=== PATIENT | female | born 1955 | race Caucasian/White ===

== ENCOUNTER → 2018-03-29 15:28 | Outpatient (CLI) | payer MEDICARE, BC, SELFPAY ==
[2018-03-29 17:07] LABS: Anion Gap 12 (5-15); BUN 16 mg/dL (7-18); BUN/Creat Ratio 20.3 RATIO (10-20); Calcium,Total 9.6 mg/dL (8.5-10.1); Chloride 103 mmol/L (98-107); Creatinine, Serum 0.79 mg/dL (0.55-1.02); EST Glomerular Filtration Rate 78 mL/min (>60); Est Glom Filt Rate - Afr Amer 94 mL/min (>60); Glucose 96 mg/dL (74-106); Potassium 4.2 mmol/L (3.5-5.1); Sodium Level 141 mmol/L (136-145)
== END ==
PROVIDERS: Family Provider Family Medicine; PCP Family Medicine; Visit Provider Internal Medicine Cardiovascular Disease
DX: R00.2 Palpitations (principal)
CPT/HCPCS: 36415; 80048

== ENCOUNTER → 2018-03-30 13:19 | Outpatient (CLI) | payer MEDICARE, BC, SELFPAY ==
--- NOTE | 2018-03-30 13:21 | ECHOD_ITS ---
Reason For Study: Arrhythmia Procedure This was a 2D Doppler, Color Flow transthoracic echocardiogram. Technically difficult due to patient body habitus. Exam performed in department. Left Ventricle Normal LV size. Mild concentric left ventricular hypertrophy. Left ventricular systolic function is normal. The estimated ejection fraction is 55 %. Transmitral diastolic flow velocities suggest moderate (stage 2) diastolic dysfunction (pseudonormal pattern). No regional wall motion abnormalities noted. Right Ventricle Normal RV size. Normal systolic function. Atria The left atrium is moderately enlarged. Normal right atrium. Mitral Valve Normal mitral valve. Mild (1+) eccentric mitral valve insufficiency. Tricuspid Valve Normal tricuspid valve. Mild to moderate (1-2+) tricuspid valve insufficiency. Pulmonary artery systolic pressure is 35 mmHg. Aortic Valve Normal aortic valve. Pulmonic Valve Normal pulmonic valve. Great Vessels Normal aortic root. The pulmonary artery is normal size. Normal inferior vena cava. Pericardium/Pleural No pericardial effusion. MMode/2D Measurements & Calculations LVIDd: 5.0 cm IVSd: 1.2 cm Ao root diam: 3.1 cm LVIDs: 3.4 cm LVPWd: 1.2 cm LA dimension: 3.6 cm FS: 32.4 % LAV(MOD-bp): 71.7 ml LA A4 area: 25.7 cm2 RA A4 area: 20.1 cm2 LAV(MOD-bp) Indexed: 34.2 ml/m2 LAV(MOD-sp2): 57.6 ml LAV(MOD-sp4): 87.8 ml Time Measurements MV dec time: 0.29 sec Doppler Measurements & Calculations MV E max alejandro: 99.3 cm/sec Lat Peak E' Alejandro: 9.3 cm/sec Med Peak E' Alejandro: 6.8 cm/sec MV A max alejandro: 75.8 cm/sec E/E' lat: 10.7 E/E' med: 14.7 MV E/A: 1.3 MV V2 max: 131.8 cm/sec MV P1/2t max alejandro: 131.8 cm/sec Ao V2 max: 145.6 cm/sec MV max P.0 mmHg MV P1/2t: 101.7 msec Ao max P.5 mmHg MV V2 mean: 66.2 cm/sec MV dec slope: 379.7 cm/sec2 Ao V2 mean: 90.2 cm/sec MV mean P.1 mmHg MVA(P1/2t): 2.2 cm2 Ao mean P.9 mmHg MV V2 VTI: 42.3 cm Ao V2 VTI: 33.2 cm LV V1 max: 86.7 cm/sec PA V2 max: 98.4 cm/sec TR max alejandro: 280.2 cm/sec LV V1 max P.0 mmHg TR max P.4 mmHg LV V1 mean P.7 mmHg LV V1 mean: 62.9 cm/sec LV V1 VTI: 22.1 cm Interpretation Summary Normal LV size. Mild concentric left ventricular hypertrophy. Left ventricular systolic function is normal. The estimated ejection fraction is 55 %. The left atrium is moderately enlarged. Mild to moderate (1-2+) tricuspid valve insufficiency. Pulmonary artery systolic pressure is 35 mmHg. Transmitral diastolic flow velocities suggest moderate (stage 2) diastolic dysfunction (pseudonormal pattern). Compared to prior study, there is no significant change. Ordering Physician: Kilo Tavares Referring Physician: Kilo Tavares Performed By: Bright Alfonso RCS
== END ==
PROVIDERS: Family Provider Family Medicine; PCP Family Medicine; Visit Provider Internal Medicine Cardiovascular Disease
DX: R00.2 Palpitations (principal)
CPT/HCPCS: 93306

== ENCOUNTER 2018-07-13 10:30 | Emergency (ER) | payer MEDICARE, BC, SELFPAY ==
[2018-07-13 10:34] VITALS: BP 165/72; PULSE 78; RESP 23; TEMP 37; O2SAT 98; BMI 43.4
[2018-07-13 10:41] VITALS: PULSE 62; RESP 12; O2SAT 99
[2018-07-13 11:49] VITALS: O2SAT 98
--- NOTE | 2018-07-13 11:49 | EKG12_ITS ---
Test Reason : AFIB Blood Pressure : / mmHG Vent. Rate : 064 BPM Atrial Rate : 064 BPM P-R Int : 148 ms QRS Dur : 092 ms QT Int : 394 ms P-R-T Axes : 052 029 028 degrees QTc Int : 406 ms Normal sinus rhythm Normal ECG Confirmed by FIORDALIZA RAO, ARSALAN ([id number]), editor continuity and script MICHI NOLASCO ([id number]) on 07/15/2018 3:22:19 PM Referred By: RINA Confirmed By:ARSALAN MANCERA MD
--- NOTE | 2018-07-13 11:49 | RAD_ITS ---
STUDY: X-RAY CHEST REASON FOR EXAM: Female, 63 years old. Chest pain. TECHNIQUE: PA and lateral views of the chest. COMPARISON: Comparison is made with prior study dated April 18, 2017. FINDINGS: EKG electrodes are seen. Mild degree of increased interstitial markings are seen suggestive of mild degree of CHF. Vascular congestion. Calcified granulomatous disease. There is no demonstrated pleural abnormality. Sternal cerclage wires and vascular clips are present from a prior sternotomy and coronary artery bypass graft procedure (CABG). Calcified left hilar lymph nodes. Normal visualized pulmonary arteries. There is atherosclerotic calcification of the aortic arch with tortuosity. There are diffuse degenerative changes of the visualized thoracic spine. Normal visualized ribs, clavicles, and shoulders. There is no demonstrated abnormality of the visualized soft tissue structures of the upper abdomen. RAD/Chest PA and Lateral IMPRESSION: Findings suggestive of a mild degree of mesenteric congestion and CHF. Electronically Signed: Timmy Swanson MD at 12:42 EST Tel [phone], Service support ,
[2018-07-13] MEDS: Aspirin 81 MG TAB.CHEW 162 MG PO (12:21)
[2018-07-13 12:22] VITALS: BP 124/68; PULSE 66; RESP 16; O2SAT 97
[2018-07-13 12:45] LABS: Absolute Lymphocyte Count 1.52 X10^3/ul (0.83-4.51); Absolute Neutrophil Count 7.2 X10^3/uL (2.0-7.7); Basophil# 0.05 X10^3/uL; Basophil% 0.5 % (0-1); Hematocrit 41.6 % (37-47); Hemoglobin 13.9 g/dl (12.0-15.0); Lymphocyte # 1.52 X10^3/ul (4.0); Lymphocyte % 15.8 % (19-41); Mean Corp Hgb Conc 33.4 g/gl (32-36); Mean Corpuscular Hgb 28.9 pg (27.0-32.0); Mean Corpuscular Volume 86.5 fL (81-99); Mean Platelet Vol. 11.9 fl (6.2-12.0); Monocyte# 0.73 X10^3/uL; Monocyte% 7.6 % (0-10); Neutrophil # 7.17 X10^3/uL (2.7-7.7); Neutrophil % 74.4 % (47-70); Platelet Count 190 K/mm3 (150-450); RBC Distribution Width CV 14.2 % (11.6-14.6); RBC Distribution Width SD 44.4 fl (35.1-43.9); Red Blood Count 4.81 M/mm3 (4.2-5.4); White Blood Count 9.6 K/mm3 (4.4-11.0)
[2018-07-13 12:51] LABS: POSITIVE COUNT NO; POSITIVE DIFFERENTIAL NO; POSITIVE MORPHOLOGY NO
[2018-07-13 12:59] LABS: Prothrombin Time (Protime)PT. 13.2 SECONDS (11.7-14.9)
[2018-07-13 13:03] LABS: Anion Gap 10 (5-15); BUN 13 mg/dL (7-18); BUN/Creat Ratio 19.4 RATIO (10-20); Calcium,Total 8.9 mg/dL (8.5-10.1); Chloride 104 mmol/L (98-107); Creatinine, Serum 0.67 mg/dL (0.55-1.02); EST Glomerular Filtration Rate 94 mL/min (>60); Est Glom Filt Rate - Afr Amer 114 mL/min (>60); Estimated Creatinine Clearance 66.21 ml/min; Glucose 126 mg/dL (74-106); Magnesium 1.8 mg/dL (1.6-2.6); Potassium 3.5 mmol/L (3.5-5.1); Sodium Level 142 mmol/L (136-145); Thyroid Stim Hormone (TSH) 2.64 uIU/mL (0.358-3.74)
--- NOTE | 2018-07-13 13:38 | ED.DCSUM_ITS ---
- ER Visit Summary Date of Service: 07/13/18 Chief Complaint: Palpitations History of Present Illness: The patient is a 63 F with history of paroxysmal A. fib and episodic palpitations who presents for prolonged palpitations this morning. Patient was going about her morning routine when she began having pa lpitations. She had associated shortness of breath, felt like her heart was racing, and nausea. Her heart rate was approximately 147 on home measurement. She took 2 baby aspirin. She denies fever, chest pain, cough, abdominal pain, vomiting today. She did feel nauseated last night and states she did not sleep well because she felt anxious during the night. She is not on any anticoagulation. Patient has a history of A. fib, coronary artery disease, CABG, not on any blood thinners. Physical Examination: Vital signs: afebrile, hemodynamically stable, no hypoxia on room air General: well nourished, well developed, in no distress Skin: warm, dry, no rash, no pallor HEENT: normocephalic and atraumatic; PERRL, EOMI, moist mucous membranes Cardiovascular: regular rate and rhythm without murmurs, no peripheral edema, 2+ pulses all distal extremities Respiratory: No increased work of breathing, lungs are clear to auscultation bilaterally, no rales, rhonchi or wheezing Abdominal: Abdomen is soft, nontender with normoactive bowel sounds, no guarding or rebound, no masses MSK: Moves all extremities, no deformities, normal strength Neuro: Awake and alert, oriented ?4. No facial droop, sensation and motor function intact and symmetric Test Results: Abnormal Lab Results 07/13/18 07/13/18 07/13/18 12:16 12:16 12:16 WBC 9.6 RBC 4.81 Hgb 13.9 Hct 41.6 MCV 86.5 MCH 28.9 MCHC 33.4 RDW 14.2 RDW Differential 44.4 H Plt Count 190 MPV 11.9 Immature Gran % (Auto) 0.700 Neut % (Auto) 74.4 H Lymph % (Auto) 15.8 L [place] % (Auto) 7.6 Eos % (Auto) 1.0 Baso % (Auto) 0.5 Absolute Neuts (auto) 7.2 Absolute Lymphs (auto) 1.52 Total Counted Not Reportable PT 13.2 INR 1.0 APTT 26.0 Sodium 142 Potassium 3.5 Chloride 104 Carbon Dioxide 28.0 Anion Gap 10 BUN 13 Creatinine 0.67 Estim Creat Clear Calc 66.21 Est GFR (MDRD) Af Amer 114 Est GFR (MDRD) Non-Af 94 BUN/Creatinine Ratio 19.4 Glucose 126 H Calcium 8.9 Magnesium 1.8 Troponin I 0.039 TSH 2.64 Clinical Impression(s) from Imaging Studies Chest X-Ray 07/13/18 11:49 IMPRESSION: Findings suggestive of a mild degree of mesenteric congestion and CHF. Electronically Signed: Timmy Swanson MD at 12:42 EST Tel [phone], Service support , Medications Given Discontinued Medications Aspirin (Aspirin, Baby) 162 mg PO X1 ONE Stop: 07/13/18 11:50 Last Admin: 07/13/18 12:21 Dose: 162 mg Emergency Department Course and Treatment: Patient was given an additional 2 baby aspirin. EKG shows sinus rhythm rate of 64, no ischemic changes. No changes from old EKG. Labs showed no anemia, leukocytosis, electrolyte derangements, or renal dysfunction. Troponin within normal limits at 0.039. Thyroid function checked and within normal limits. On reevaluation, patient was still asymptomatic and having no discomfort. She had no further episodes of palpitations. No arrhythmias were noted on telemetry during her stay. She was discussed with Dr. Reilly who recommended patient be ordered a 30-day event monitor and her metoprolol be increased to 75 mg twice daily. Patient was ordered the 30-day event monitor and discharged to the outpatient cardiovascular center for placement of the monitor. She is to follow-up with Dr. Tavares for the results. Patient was given a prescription for the new dose of metoprolol, and we discussed how she can use her current prescription to take the new dose as well. Patient was discharged home and will return if any worsening of her condition. Treatment Plan: [] Disposition: [] Impression: [] This note was generated with Tric[employer] software. It may contain incorrect words, spelling, and punctuation that were not noted in review of the chart prior to signing ED Disposition - Plan for ED Patient: Disposition: Home or Assisted Living Chief Complaint: Chest Pain Instructions: ED Palpitations Prescriptions: RX: Metoprolol Tartrate 75 mg PO BID #60 tab Referrals: Kilo Tavares MD [STAFF PHYSICIAN] - 1 Week Anibal Arellano MD [Primary Care Provider] - Additional Instructions: Please go directly to the outpatient cardiovascular department on the first floor upon leaving the emergency department. He will be given a 30-day event monitor to wear to watch for any further palpitations. Follow the instructions as you were given by the cardiovascular nurse. Increase your metoprolol to 75 mg twice daily. Follow-up with your television production assistant for review of the event monitor as you are instructed by the cardiovascular nurse. If you have any worsening of your condition or any new concerning symptoms, please return immediately to the emergency department for another evaluation.
--- NOTE | 2018-07-13 13:44 | ED.DEP ---
ED Disposition - Plan for ED Patient: Disposition: Home or Assisted Living Chief Complaint: Chest Pain Instructions: ED Palpitations Prescriptions: Metoprolol Tartrate 75 mg PO BID #60 tab Referrals: Anibal Arellano MD [Primary Care Provider] - Kilo Tavares MD [STAFF PHYSICIAN] - 1 Week Additional Instructions: Please go directly to the outpatient cardiovascular department on the first floor upon leaving the emergency department. He will be given a 30-day event monitor to wear to watch for any further palpitations. Follow the instructions as you were given by the cardiovascular nurse. Increase your metoprolol to 75 mg twice daily. Follow-up with your second cutter for review of the event monitor as you are instructed by the cardiovascular nurse. If you have any worsening of your condition or any new concerning symptoms, please return immediately to the emergency department for another evaluation.
--- NOTE | 2018-07-13 13:49 | DCINST.ED_ITS ---
ED Disposition - Plan for ED Patient: Disposition: Home or Assisted Living Chief Complaint: Chest Pain Instructions: ED Palpitations Prescriptions: Metoprolol Tartrate 75 mg PO BID #60 tab Referrals: Anibal Arellano MD [Primary Care Provider] - Kilo Tavares MD [STAFF PHYSICIAN] - 1 Week Additional Instructions: Please go directly to the outpatient cardiovascular department on the first f brad upon leaving the emergency department. He will be given a 30-day event monitor to wear to watch for any further palpitations. Follow the instructions as you were given by the cardiovascular nurse. Increase your metoprolol to 75 mg twice daily. Follow-up with your endband cutter hand for review of the event monitor as you are instructed by the cardiovascular nurse. If you have any worsening of your condition or any new concerning symptoms, please return immediately to the emergency department for another evaluation.
[2018-07-13 13:57] VITALS: BP 120/59; PULSE 59; RESP 20
== END 2018-07-13 14:32 | disposition home or self-care (01) ==
PROVIDERS: Emergency Provider Emergency Medicine; Family Provider Family Medicine; PCP Family Medicine
DX: R00.2 Palpitations (principal); I48.0 Paroxysmal atrial fibrillation; I25.10 Atherosclerotic heart disease of native coronary artery without angina pectoris; Z79.82 Long term (current) use of aspirin; Z79.899 Other long term (current) drug therapy; Z95.1 Presence of aortocoronary bypass graft
CPT/HCPCS: 71046; 80048; 83735; 84443; 84484; 85025; 85610; 85730; 93005; 99285; A4216

== ENCOUNTER → 2018-12-07 19:55 | Outpatient (CLI) | payer MEDICARE, BC, SELFPAY ==
[2018-11-04 14:27] VITALS: BMI 41.3
== END ==
PROVIDERS: Family Provider Family Medicine; PCP Family Medicine; Referring Provider Nurse Practitioner Family; Visit Provider Nurse Practitioner Family
DX: G47.10 Hypersomnia, unspecified (principal); I48.0 Paroxysmal atrial fibrillation
CPT/HCPCS: 95810

== ENCOUNTER → 2019-02-08 20:59 | Outpatient (CLI) | payer MEDICARE, BC, SELFPAY ==
[2019-01-05 14:05] VITALS: BMI 41.3
== END ==
PROVIDERS: Family Provider Family Medicine; PCP Family Medicine; Referring Provider Nurse Practitioner Acute Care; Visit Provider Nurse Practitioner Acute Care
DX: G47.33 Obstructive sleep apnea (adult) (pediatric) (principal)
CPT/HCPCS: 95811

== ENCOUNTER → 2020-09-16 06:15 | Outpatient (CLI) | payer MEDICARE, BC, SELFPAY ==
[2020-09-04 08:43] VITALS: BMI 42.7
--- NOTE | 2020-09-16 08:58 | STRESSREP ---
Stress Test Report Pharmacologic myocardial perfusion stress test. 65-year-old lady with a history of coronary artery bypass surgery in 2014 with a ALVES to the LAD saphenous vein graft to obtuse marginal branch 1 and 2. Stress protocol: Resting EKG demonstrates normal sinus rhythm with a rate of 83 bpm normal intervals are noted resting blood pressure is 128/78 mmHg. 0.4 mg of regadenoson was infused per usual protocol followed by rapid intravenous saline flush injection continuous EKG monitoring was performed the patient maintained sinus rhythm throughout the recording. The maximum heart rate was 105 bpm which was 68% of maximum predicted heart rate the maximum workload was 1 metabolic equivalent. At rest there were no ST or T wave changes noted to suggest abnormal flow reserve at peak infusion nonspecific ST-T wave changes were noted with no meet the criteria for ischemia. No clinical angina was noted the test was terminated due to completion of the protocol. The final blood pressure was 112/58 mmHg. Myocardial perfusion protocol. 14.7 mCi of technetium 99m sestamibi was injected at rest. 0.4 mg of regadenoson was infused per usual protocol. At peak infusion 45.0 mCi of technetium 99m sestamibi was injected stress images were obtained stress and rest images were reconstructed and compared in the short axis vertical long horizontal long axis. Gated images were also obtained Perfusion SPECT analysis: Review of the stress images demonstrate normal uptake of tracer noted in all areas of the myocardium the resting images similarly demonstrate normal uptake of tracer noted in all areas of the myocardium. No areas of reversibility are noted to suggest ischemia no previous infarct is noted. Gated SPECT analysis: The gated ejection fraction is 48%. Conclusion: Normal pharmacologic myocardial perfusion stress test. Preserved ejection fraction.
== END ==
PROVIDERS: PCP Family Medicine; Referring Provider Internal Medicine Cardiovascular Disease; Visit Provider Internal Medicine Cardiovascular Disease
DX: I25.10 Atherosclerotic heart disease of native coronary artery without angina pectoris (principal); Z95.1 Presence of aortocoronary bypass graft
CPT/HCPCS: 78452; 93017; A9500; A4216; J2785

== ENCOUNTER 2021-02-24 11:01 | Emergency (ER) | payer MEDICARE, BC, SELFPAY ==
[2020-09-04 08:43] VITALS: BMI 42.7
[2021-02-24 11:01] VITALS: BP 147/116; PULSE 61; RESP 16; TEMP 36.8; O2SAT 96; BMI 43.5
--- NOTE | 2021-02-24 11:32 | EKG12_ITS ---
Test Reason : SOB Blood Pressure : / mmHG Vent. Rate : 055 BPM Atrial Rate : 055 BPM P-R Int : 146 ms QRS Dur : 086 ms QT Int : 456 ms P-R-T Axes : 061 025 026 degrees QTc Int : 436 ms Sinus bradycardia Otherwise normal ECG Confirmed by BREE RAO, NICHOLE ([id number]), film editor supervisor GARRY GREENE ([id number]) on 02/27/2021 7:49:05 AM Referred By: RODRIGO Confirmed By:NICHOLE GIRON MD
--- NOTE | 2021-02-24 11:54 | EDS_ITS ---
HPI History of Present Illness Chief Complaint: Shortness of Breath Narrative Narrative: 65-year-old female presenting with dyspnea especially with exertion. Patient states that she is able to walk shorter distance than usual. She is able to go outside and walk around. She is not having any chest pain. She not had a fever or chills. She states she has not had the COVID-19 vaccine. She states she has history of CABG, paroxysmal A. fib, hypertension, sleep apnea. Patient states that she did not take her Lasix last week because she was getting home at 7:00 at night and she did not want to have to get up all night. Patient states she missed about 6 days. Patient complains of lower extremity edema and feeling of bloating in her abdomen. [facility] Medical History Anxiety and depression Atherosclerosis of coronary artery of [place] heart without angina pectoris Dyslipidemia Essential (primary) hypertension GERD (gastroesophageal reflux disease) Hypersomnolence disorder Hypothyroidism Left ventricular diastolic dysfunction Non-rheumatic tricuspid valve insufficiency Nonrheumatic mitral valve insufficiency Obesity (BMI 30-39.9) ROSENDO (obstructive sleep apnea) Paroxysmal atrial fibrillation Restless leg syndrome, uncontrolled Tibial plateau fracture, right Trimalleolar fracture of right ankle Home Medications alprazolam 0.25 mg PO BID PRN PRN 07/19/15 [History Last Taken 09/19/15] levothyroxine 125 mcg PO DAILY 07/19/15 [History Last Taken 02/12/16] pantoprazole 40 mg PO DAILY 07/19/15 [History Last Taken 02/12/16] simvastatin 20 mg PO QHS 07/19/15 [History Last Taken 02/11/16] losartan-hydrochlorothiazide 1 tab PO DAILY 02/13/16 [History Last Taken Unknown] multivitamin with folic acid 1 tab PO DAILY 02/13/16 [History Last Taken 02/12/16] alendronate 70 mg tablet 70 mg PO QWEEK 01/05/19 [History Last Taken Unknown] apixaban 5 mg tablet 5 mg PO BID #60 tab 08/22/19 [Rx Last Taken Unknown] aspirin 81 mg tablet,delayed release 81 mg PO QDAY #90 tab 12/06/19 [Rx Last Taken Unknown] escitalopram oxalate 20 mg tablet 20 mg PO DAILY tab 09/04/20 [History Last Taken Unknown] furosemide 40 mg tablet 40 mg PO DAILY tab 09/04/20 [History Last Taken Unknown] latanoprost 0.005 % eye drops 1 drp OPHTHALMIC DAILY 09/04/20 [History Last Taken Unknown] metoprolol tartrate 100 mg tablet 50 mg PO BID #60 tab 09/04/20 [Rx Last Taken Unknown] spironolactone 50 mg tablet 50 mg PO DAILY #90 tab 09/04/20 [Rx Last Taken Unknown] Allergy/AdvReac Type Severity Reaction Status Date / Time latex Allergy Rash Verified 02/24/21 11:03 Sulfa (Sulfonamide Allergy Rash Verified 02/24/21 11:03 Antibiotics) atorvastatin calcium AdvReac Other Verified 02/24/21 11:03 [From Lipitor] CILLINS Allergy Rash Uncoded 02/24/21 11:03 Family History Father CAD (coronary artery disease) Hypertension Mother CAD (coronary artery disease) Hypertension Breast cancer Brother CAD (coronary artery disease) Hypertension TIA (transient ischemic attack) Brother Myocardial infarction cabg Surgical History H/O coronary artery bypass surgery (12/04/14) H/O knee surgery H/O: hysterectomy Social History Smoking Status: Never smoker alcohol intake: never caffeine: Yes Type: coffee ROS ROS ED Constitutional Constitutional ED: Denies chills or fever(s) Eyes Eyes: Denies blurry vision or change in vision ENT ENT ED: Denies rhinorrhea or sore throat Cardiovascular Cardiovascular: Denies chest pain or palpitations Respiratory/Chest Respiratory/Chest: Reports dyspnea and dyspnea on exertion; Denies cough Gastrointestinal Gastrointestinal: Reports other Details: Sensation of bloating ; Denies abdominal pain or nausea Genitourinary Genitourinary ED: Denies dysuria or hematuria Musculoskeletal Musculoskeletal: Denies arthralgias or myalgias Integumentary Denies abscess or rash Neurologic Neurologic: Denies headache(s), paresthesias or weakness Psychiatric Psychiatric: Denies anxiety or depression EXAM Physical Exam Const Vital Signs: 02/24/21 11:01 02/24/21 11:59 02/24/21 13:55 Temperature 98.2 F Temperature Source Temporal Pulse Rate 61 51 L 52 L Respiratory Rate 16 19 H 21 H Blood Pressure 147/116 H 129/72 H Blood Pressure Mean 126 91 Pulse Ox 96 95 96 Oxygen Delivery Method Room Air 02/24/21 14:03 02/24/21 14:54 Temperature Temperature Source Pulse Rate 56 L Respiratory Rate 16 Blood Pressure 143/49 H Blood Pressure Mean 80 Pulse Ox 95 97 Oxygen Delivery Method Room Air Positive obese General Appearance ED: NAD Nutritional Appearance: obese HEENT atraumatic and trauma Eyes PERRL and EOMs intact bilaterally Resp normal respiratory effort and clear to auscultation bilaterally Cardio regular rate and regular rhythm GI non-tender and non-distended Palpation: soft Extremity General Extremety ED: Yes edema; Negative for tenderness General Extremity: edema Neuro oriented x3 Sensorium / Orientation: alert Psych mental status grossly normal Skin Lesions: no lesions Rashes: no rashes MDM MDM MDM Narrative Medical decision making narrative: Patient presenting with dyspnea on exertion. She states that she is able to walk around the yard she does has more dyspnea than usual. She has not been taking her Lasix for 6 days. EKG performed on arrival shows sinus bradycardia 55 bpm without signs of ischemic change as interpreted by myself. Chest x-ray shows no acute cardiopulmonary process as interpreted by myself and the radiologist does agree. Patient's lab work-up is unremarkable. Troponin is negative. BNP is slightly elevated. Given that the patient is not having severe dyspnea and is able to get around the yard I think she is stable to go home. She is counseled to take her Lasix. She will follow- up with Dr. Tavares. Impression: 1. Dyspnea Lab Data Labs: Laboratory Results - last 24 hr 02/24/21 02/24/21 02/24/21 11:15 11:15 14:45 WBC 7.5 RBC 3.98 L Hgb 12.1 Hct 35.5 L MCV 89.2 MCH 30.4 MCHC 34.1 RDW Std Deviation 42.2 RDW Coeff of Ayesha 12.9 Plt Count 173 MPV 12.1 H Immature Gran % (Auto) 1.200 H Neut % (Auto) 61.0 Lymph % (Auto) 24.1 [place] % (Auto) 11.1 H Eos % (Auto) 1.9 Baso % (Auto) 0.7 Absolute Neuts (auto) 4.6 Absolute Lymphs (auto) 1.80 Nucleated RBC % 0 Sodium 138 Potassium 4.1 Chloride 104 Carbon Dioxide 28.0 Anion Gap 6 BUN 13 Creatinine 0.85 Estim Creat Clear Calc 50.80 Est GFR (MDRD) Af Amer 85 Est GFR (MDRD) Non-Af 71 BUN/Creatinine Ratio 15.3 Glucose 146 H Calcium 9.6 Troponin I High Sens B-Natriuretic Peptide 223.3 H 02/24/21 14:45 WBC RBC Hgb Hct MCV MCH MCHC RDW Std Deviation RDW Coeff of Ayesha Plt Count MPV Immature Gran % (Auto) Neut % (Auto) Lymph % (Auto) [place] % (Auto) Eos % (Auto) Baso % (Auto) Absolute Neuts (auto) Absolute Lymphs (auto) Nucleated RBC % Sodium Potassium Chloride Carbon Dioxide Anion Gap BUN Creatinine Estim Creat Clear Calc Est GFR (MDRD) Af Amer Est GFR (MDRD) Non-Af BUN/Creatinine Ratio Glucose Calcium Troponin I High Sens 7.9 B-Natriuretic Peptide Radiography Diagnostic Testing: Radiology Impression Chest X-Ray 02/24/21 12:06 IMPRESSION: Chronic interstitial changes, no superimposed acute pulmonary process Electronically Signed: Adalid Cruz MD at 12:23 EDT , Service support , Discharge Plan Triage Chief Complaint: Shortness of Breath ED Provider: Rock Noriega Dx/Rx/DC Orders Instructions: ED Heart Failure, Congestive (CHF) Prescriptions: No Action alendronate 70 mg tablet 70 mg PO QWEEK RF: 0 escitalopram oxalate 20 mg tablet 20 mg PO DAILY RF: 0 latanoprost 0.005 % drops 1 drp OPHTHALMIC DAILY RF: 0 metoprolol tartrate 100 mg tablet 50 mg PO BID Qty: 60 RF: 11 furosemide 40 mg tablet 40 mg PO DAILY RF: 0 spironolactone [Aldactone] 50 mg tablet 50 mg PO DAILY Qty: 90 RF: 3 alprazolam 1 MG tablet 0.25 mg PO BID PRN PRN (Reason: Anxiety) RF: 0 pantoprazole 40 MG tablet 40 mg PO DAILY RF: 0 simvastatin 20 MG tablet 20 mg PO QHS RF: 0 levothyroxine 125 MCG tablet 125 mcg PO DAILY RF: 0 multivitamin with folic acid 1 TABLET tablet 1 tab PO DAILY RF: 0 losartan-hydrochlorothiazide 1 TAB tablet 1 tab PO DAILY RF: 0 Eliquis 5 mg tablet 5 mg PO BID Qty: 60 RF: 11 aspirin [Adult Low Dose Aspirin] 81 mg tablet,delayed release (DR/EC) 81 mg PO QDAY Qty: 90 RF: 3 Primary Care Provider: Anibal Arellano Referrals: Kilo Tavares MD [STAFF PHYSICIAN] - As soon as possible Anibal Arellano MD [Primary Care Provider] - Disposition Disposition: Home, Self Care
[2021-02-24 11:59] VITALS: BP 129/72; PULSE 51; RESP 19; O2SAT 95
[2021-02-24 12:03] LABS: Anion Gap 6 (5-15); BUN 13 mg/dL (7-18); BUN/Creat Ratio 15.3 RATIO (10-20); Calcium,Total 9.6 mg/dL (8.5-10.1); Chloride 104 mmol/L (98-107); Creatinine, Serum 0.85 mg/dL (0.55-1.02); EST Glomerular Filtration Rate 71 mL/min (>60); Est Glom Filt Rate - Afr Amer 85 mL/min (>60); Glucose 146 mg/dL (74-106); Potassium 4.1 mmol/L (3.5-5.1); Sodium Level 138 mmol/L (136-145)
--- NOTE | 2021-02-24 12:06 | RAD_ITS ---
STUDY: X-RAY CHEST REASON FOR EXAM: Female, 65 years old. Acute substernal chest pain TECHNIQUE: Single AP portable view of the chest. COMPARISON: 07/13/2018 FINDINGS: EKG leads overlie the chest There are interstitial changes of the lungs. There is no demonstrated pleural abnormality. Sternal cerclage wires and vascular clips are present from a prior sternotomy and coronary artery bypass graft procedure (CABG). Normal mediastinum and bertram. Normal visualized pulmonary arteries. There is atherosclerotic calcification of the aortic arch with tortuosity. There are diffuse degenerative changes of the visualized thoracic spine. Normal visualized ribs, clavicles, and shoulders. There is no demonstrated abnormality of the visualized soft tissue structures of the upper abdomen. RAD/Chest 1 View (Portable) IMPRESSION: Chronic interstitial changes, no superimposed acute pulmonary process Electronically Signed: Adalid Cruz MD at 12:23 EDT , Service support ,
[2021-02-24 12:15] LABS: BNP,B-Type NATRIURETIC PEPTIDE 223.3 pg/mL (0-100)
--- NOTE | 2021-02-24 12:31 | ED.RN ---
pt refused covid swab stating my symptoms are purely related to my heart condition. rn informed dr melo at this time.
[2021-02-24 13:55] VITALS: PULSE 52; RESP 21; O2SAT 96
[2021-02-24 14:03] VITALS: BP 143/49; PULSE 56; RESP 16; O2SAT 95
[2021-02-24 14:51] LABS: Absolute Neutrophil Count 4.6 X10^3/uL (2.0-7.7); Basophil# 0.05 X10^3/uL; Basophil% 0.7 % (0-1); Eosinophil# 0.14 X10^3/uL; Eosinophils% 1.9 % (0-5); Hematocrit 35.5 % (37-47); Hemoglobin 12.1 g/dL (12.0-15.0); Lymphocyte % 24.1 % (19-41); Mean Corp Hgb Conc 34.1 g/dL (32-36); Mean Corpuscular Hgb 30.4 pg (27.0-32.0); Mean Corpuscular Volume 89.2 fL (81-99); Mean Platelet Vol. 12.1 fl (6.2-12.0); Monocyte# 0.83 X10^3/uL; Monocyte% 11.1 % (0-10); NRBC Flagged by Analyzer 0 % (0-5); Neutrophil # 4.57 X10^3/uL (2.7-7.7); Platelet Count 173 K/mm3 (150-450); RBC Distribution Width CV 12.9 % (11.6-14.6); RBC Distribution Width SD 42.2 fl (35.1-43.9); Red Blood Count 3.98 M/mm3 (4.2-5.4); White Blood Count 7.5 K/mm3 (4.4-11.0)
[2021-02-24 14:54] VITALS: O2SAT 97
[2021-02-24 15:10] LABS: Troponin-I HS 7.9 pg/mL (3.0-53.7)
[2021-02-24 16:06] VITALS: BP 124/57; RESP 16; O2SAT 98
== END 2021-02-24 16:07 | disposition home or self-care (01) ==
PROVIDERS: Emergency Provider Student in an Organized Health Care Education/Training Program; PCP Family Medicine
DX: R06.02 Shortness of breath (principal); I11.9 Hypertensive heart disease without heart failure; I48.0 Paroxysmal atrial fibrillation; I25.10 Atherosclerotic heart disease of native coronary artery without angina pectoris; E03.9 Hypothyroidism, unspecified; E78.5 Hyperlipidemia, unspecified; G47.33 Obstructive sleep apnea (adult) (pediatric); K21.9 Gastro-esophageal reflux disease without esophagitis; F32.9 Major depressive disorder, single episode, unspecified; F41.9 Anxiety disorder, unspecified; E66.9 Obesity, unspecified; Z79.01 Long term (current) use of anticoagulants; Z79.82 Long term (current) use of aspirin; Z79.899 Other long term (current) drug therapy; Z95.1 Presence of aortocoronary bypass graft
CPT/HCPCS: 71045; 80048; 83880; 84484; 85025; 93005; 99284; A4216

== ENCOUNTER 2021-07-31 14:55 | Emergency (ER) | payer MEDICARE, BC, SELFPAY ==
[2021-07-31 14:55] VITALS: BP 145/65; PULSE 62; RESP 16; TEMP 36.2; O2SAT 98; BMI 39.6
--- NOTE | 2021-07-31 15:15 | RAD_ITS ---
STUDY: X-RAY - RIGHT KNEE REASON FOR EXAM: Female, 66 years old. FALL TECHNIQUE: 3 view(s) of the knee. COMPARISON: 02/12/2016 FINDINGS: Status post reduction and internal fixation of old tibial fracture with indwelling orthopedic hardware... Old lateral tibial plateau fracture Normal proximal tibiofibular articulation. Narrowed medial femorotibial compartment. Narrowed lateral femorotibial compartment. Normal patellofemoral articulation. Surgical clips are seen within the soft tissues of the medial calf. RAD/Knee 3 Views IMPRESSION: Old healed fracture of the proximal tibia with postsurgical changes. No acute fracture or subluxation Electronically Signed: William Falcon MD at 16:51 EST , Service support ,
--- NOTE | 2021-07-31 15:15 | RAD_ITS ---
STUDY: X-RAY - RIGHT FEMUR REASON FOR STUDY: Female, 66 years old. FALL TECHNIQUE: 4 view(s) of the femur. COMPARISON: None. FINDINGS: Normal visualized femur. Normal visualized soft tissue structure. RAD/Femur Min 2 Views IMPRESSION: Normal x-ray examination of the femur. Electronically Signed: William Falcon MD at 16:51 EST , Service support ,
--- NOTE | 2021-07-31 15:15 | RAD_ITS ---
STUDY: X-RAY - LUMBAR SPINE REASON FOR EXAM: Female, 66 years old. FALL TECHNIQUE: 3 view(s) of the lumbar spine were obtained. COMPARISON: None FINDINGS: Normal lumbar lordosis. There is no substantial scoliosis. There is a normal alignment of the vertebrae. No acute fractures or subluxation. Disc space heights well-maintained is minor multilevel endplate spurring. Vascular calcification of the aorta noted without evidence for aneurysm. RAD/Lumbar Spine 2 or 3 Views IMPRESSION: Mild spondylosis. No acute fracture or other significant bony pathology Electronically Signed: William Falcon MD at 16:52 EST , Service support ,
--- NOTE | 2021-07-31 17:37 | EDS_ITS ---
HPI HPI - Fall History of Present Illness Chief Complaint: Fall Informant: patient Occured/Mechanism Occurred: Yesterday Mechanism/Context: Yes same level fall and Yes trip Usually ambulates: Without assistance Pain/Injury Location: Right knee, thigh, and hip Quality of Pain: Sharp, Aching, Burning and Throbbing Associated Symptoms Associated Symptoms: Negative for Parasthesias, Weakness, Loss of function, Inability to ambulate and Loss of consciousness Narrative Narrative: Patient presents with pain in her right knee, thigh, and hip that began after a fall yesterday. Patient states she was walking up a ramp when her right knee gave out. Patient states she fell. Patient states her pain is sharp, aching, burning, and throbbing. Patient states it is worse with any ambulation or weightbearing. Patient states it is better with rest. Patient denies any paresthesias or weakness. Patient denies any head injury or loss of consciousness. [facility] Medical History (Updated 07/31/21 @ 17:[address] Dean Lou, DO) Anxiety and depression Atherosclerosis of coronary artery of [place] without angina pectoris Dyslipidemia Essential (primary) hypertension GERD (gastroesophageal reflux disease) Hypersomnolence disorder Hypothyroidism Left ventricular diastolic dysfunction Non-rheumatic tricuspid valve insufficiency Nonrheumatic mitral valve insufficiency Obesity (BMI 30-39.9) ROSENDO (obstructive sleep apnea) Paroxysmal atrial fibrillation Restless leg syndrome, uncontrolled Tibial plateau fracture, right Trimalleolar fracture of right ankle Home Medications levothyroxine 125 mcg PO DAILY 07/19/15 [History Last Taken 02/12/16] pantoprazole 40 mg PO DAILY 07/19/15 [History Last Taken 02/12/16] simvastatin 20 mg PO QHS 07/19/15 [History Last Taken 02/11/16] losartan-hydrochlorothiazide 1 tab PO DAILY 02/13/16 [History Last Taken Unknown] multivitamin with folic acid 1 tab PO DAILY 02/13/16 [History Last Taken 02/12/16] alendronate 70 mg tablet 70 mg PO QWEEK 01/05/19 [History Last Taken Unknown] apixaban 5 mg tablet 5 mg PO BID #60 tab 08/22/19 [Rx Last Taken Unknown] aspirin 81 mg tablet,delayed release 81 mg PO QDAY #90 tab 12/06/19 [Rx Last Taken Unknown] escitalopram oxalate 20 mg tablet 20 mg PO DAILY tab 09/04/20 [History Last Taken Unknown] furosemide 40 mg tablet 20 mg PO DAILY tab 09/04/20 [History Last Taken Unknown] latanoprost 0.005 % eye drops 1 drp OPHTHALMIC DAILY 09/04/20 [History Last Taken Unknown] metoprolol tartrate 100 mg tablet 50 mg PO BID #60 tab 09/04/20 [Rx Last Taken Unknown] spironolactone 50 mg tablet 50 mg PO DAILY #90 tab 03/05/21 [Rx Last Taken Un known] tramadol 50 mg PO Q4H PRN PRN 3 Days #20 tab 07/31/21 [Rx Last Taken Unknown] Allergy/AdvReac Type Severity Reaction Status Date / Time latex Allergy Rash Verified 03/05/21 13:54 Sulfa (Sulfonamide Allergy Rash Verified 03/05/21 13:54 Antibiotics) atorvastatin calcium AdvReac Other Verified 03/05/21 13:54 [From Lipitor] Opioids - Morphine Analogues AdvReac Other Verified 07/31/21 14:59 CILLINS Allergy Rash Uncoded 02/24/21 11:03 Family History Father CAD (coronary artery disease) Hypertension Mother CAD (coronary artery disease) Hypertension Breast cancer Brother CAD (coronary artery disease) Hypertension TIA (transient ischemic attack) Brother Myocardial infarction cabg Surgical History H/O coronary artery bypass surgery (12/04/14) H/O knee surgery H/O: hysterectomy Social History Smoking Status: Never smoker alcohol intake: never caffeine: Yes Type: coffee ROS ROS ED Constitutional Constitutional ED: Denies chills or fever(s) Eyes Eyes: Denies blurry vision or change in vision ENT ENT ED: Denies rhinorrhea or sore throat Cardiovascular Cardiovascular: Denies chest pain or palpitations Respiratory/Chest Respiratory/Chest: Denies cough or dyspnea Gastrointestinal Gastrointestinal: Reports nausea; Denies vomiting Genitourinary Genitourinary ED: Denies dysuria or hematuria Musculoskeletal Musculoskeletal: Reports back pain; Denies neck pain Integumentary Denies abscess or rash Neurologic Neurologic: Denies headache(s) or weakness Allergic/Immunologic Allergic/Immunologic ED: Denies mouth swelling or urticaria EXAM Physical Exam Const Vital Signs: 07/31/21 14:55 Temperature 97.2 F L Temperature Source Temporal Pulse Rate 62 Respiratory Rate 16 Blood Pressure 145/65 H Blood Pressure Mean 91 Pulse Ox 98 Oxygen Delivery Method Room Air Positive well nourished, well developed and obese General Appearance ED: well developed Nutritional Appearance: obese HEENT Reports normocephalic Neck full ROM and supple Extremity Extremity Narrative: There is tenderness over the anterior aspect of the right knee and medial aspect of the right thigh. There is also tenderness over the posterior and lateral aspects of the right hip. There is no bony crepitance or step-off. There is no obvious deformity. Range of motion was limited in all motions of the right lower extremity secondary to pain. Extensor mechanism is intact. Pedal pulses are equal bilaterally. Sensation was intact to light touch in all digits. Capillary refill was less than 2 seconds in all digits. Neuro oriented x3, CN's II-XII intact bilaterally, moves all extremities, no focal motor deficits and no sensory deficits noted Sensorium / Orientation: alert Motor Exam: strength 5/5 throughout Psych mental status grossly normal MDM MDM MDM Narrative Medical decision making narrative: X-rays of the lumbar spine were obtained. There are 3 views. On my interpretation, there is no acute fracture or spondylolisthesis. Radiologist also interpreted the x-rays and agrees. X-rays of the right knee were obtained. There are 3 views. On my interpretation, there is no acute fracture. There is a well-healed fracture of the proximal tibia. There is no soft tissue swelling. Radiologist also interpreted the x- rays and agrees. X-rays of the right femur were obtained. There are 4 views. On my interpretation, there is no acute fracture or dislocation. There is no soft tissue swelling. Radiologist also interpreted the x-rays and agrees. Patient was advised of her findings. Patient was given a knee immobilizer. Patient was instructed to ice and elevate the right knee. Patient was instructed to follow-up with her primary care physician in 5 to 7 days. Patient understood and was agreeable with the plan. All questions were answered. Radiography Diagnostic Testing: Clinical Impression(s) from Imaging Studies Femur X-Ray 07/31/21 15:15 IMPRESSION: Normal x-ray examination of the femur. Electronically Signed: William Falcon MD at 16:51 EST , Service support , Knee X-Ray 07/31/21 15:15 IMPRESSION: Old healed fracture of the proximal tibia with postsurgical changes. No acute fracture or subluxation Electronically Signed: William Falcon MD at 16:51 EST , Service support , Lumbar Spine X-Ray 07/31/21 15:15 IMPRESSION: Mild spondylosis. No acute fracture or other significant bony pathology Electronically Signed: William Falcon MD at 16:52 EST , Service support , Discharge Plan Triage Chief Complaint: Fall ED Provider: Dean Lou Dx/Rx/DC Orders Clinical Impression: Right knee sprain, Strain of right hip and thigh Instructions: ED Knee Sprain, ED Muscle Strain, Extremity Prescriptions: New tramadol 50 MG tablet 50 mg PO Q4H PRN PRN (Reason: Pain) 3 Days Qty: 20 RF: 0 No Action alendronate 70 mg tablet 70 mg PO QWEEK RF: 0 escitalopram oxalate 20 mg tablet 20 mg PO DAILY RF: 0 latanoprost 0.005 % drops 1 drp OPHTHALMIC DAILY RF: 0 metoprolol tartrate 100 mg tablet 50 mg PO BID Qty: 60 RF: 11 furosemide 40 mg tablet 20 mg PO DAILY RF: 0 spironolactone [Aldactone] 50 mg tablet 50 mg PO DAILY Qty: 90 RF: 3 pantoprazole 40 MG tablet 40 mg PO DAILY RF: 0 simvastatin 20 MG tablet 20 mg PO QHS RF: 0 levothyroxine 125 MCG tablet 125 mcg PO DAILY RF: 0 multivitamin with folic acid 1 TABLET tablet 1 tab PO DAILY RF: 0 losartan-hydrochlorothiazide 1 TAB tablet 1 tab PO DAILY RF: 0 Eliquis 5 mg tablet 5 mg PO BID Qty: 60 RF: 11 aspirin [Adult Low Dose Aspirin] 81 mg tablet,delayed release (DR/EC) 81 mg PO QDAY Qty: 90 RF: 3 Primary Care Provider: Aniabl Arellano Referrals: Anibal Arellano MD [Primary Care Provider] - 3-5 Days Disposition Disposition: Home, Self Care
== END 2021-07-31 18:22 | disposition home or self-care (01) ==
PROVIDERS: Emergency Provider Emergency Medicine; PCP Family Medicine
DX: S83.91XA Sprain of unspecified site of right knee, initial encounter (principal); S76.011A Strain of muscle, fascia and tendon of right hip, initial encounter; S76.911A Strain of unspecified muscles, fascia and tendons at thigh level, right thigh, initial encounter; W18.30XA Fall on same level, unspecified, initial encounter; Y93.01 Activity, walking, marching and hiking; Y92.9 Unspecified place or not applicable; Y99.9 Unspecified external cause status; I11.9 Hypertensive heart disease without heart failure; I48.0 Paroxysmal atrial fibrillation; I25.10 Atherosclerotic heart disease of native coronary artery without angina pectoris; E78.5 Hyperlipidemia, unspecified; E03.9 Hypothyroidism, unspecified; K21.9 Gastro-esophageal reflux disease without esophagitis; G47.33 Obstructive sleep apnea (adult) (pediatric); F32.A Depression, unspecified; F41.9 Anxiety disorder, unspecified; E66.9 Obesity, unspecified; Z79.01 Long term (current) use of anticoagulants; Z79.82 Long term (current) use of aspirin; Z79.899 Other long term (current) drug therapy; Z95.1 Presence of aortocoronary bypass graft
CPT/HCPCS: 72100; 73552; 73562; 99282

== ENCOUNTER → 2022-03-09 | Outpatient (CLI) | payer MEDICARE, BC, SELFPAY ==
[2022-03-09 15:29] LABS: Absolute Lymphocyte Count 1.54 X10^3/uL (0.83-4.51); Absolute Neutrophil Count 13.5 X10^3/uL (2.0-7.7); Basophil# 0.07 X10^3/uL; Basophil% 0.4 % (0-1); Eosinophil# 0.02 X10^3/uL; Eosinophils% 0.1 % (0-5); Hematocrit 40.9 % (37-47); Hemoglobin 13.6 g/dL (12.0-15.0); Lymphocyte # 1.54 X10^3/ul (0.83-4.51); Lymphocyte % 9.2 % (19-41); Mean Corp Hgb Conc 33.3 g/dL (32-36); Mean Corpuscular Hgb 30.4 pg (27.0-32.0); Mean Corpuscular Volume 91.3 fL (81-99); Mean Platelet Vol. 12.4 fl (6.2-12.0); Monocyte# 1.26 X10^3/uL; Monocyte% 7.5 % (0-10); NRBC Flagged by Analyzer 0 % (0-5); Neutrophil # 13.47 X10^3/uL (2.7-7.7); Neutrophil % 80.4 % (47-70); Platelet Count 203 K/mm3 (150-450); RBC Distribution Width CV 13.8 % (11.6-14.6); RBC Distribution Width SD 45.7 fl (35.1-43.9); Red Blood Count 4.48 M/mm3 (4.2-5.4); White Blood Count 16.8 K/mm3 (4.4-11.0)
[2022-03-09 16:00] LABS: Anion Gap 7 (5-15); BUN 19 mg/dL (7-18); BUN/Creat Ratio 27.2 RATIO (10-20); Calcium,Total 9.4 mg/dL (8.5-10.1); Chloride 104 mmol/L (98-107); EST Glomerular Filtration Rate 89 mL/min (>60); Est Glom Filt Rate - Afr Amer 107 mL/min (>60); Glucose 133 mg/dL (74-106); Potassium 4.2 mmol/L (3.5-5.1); Sodium Level 139 mmol/L (136-145)
== END | disposition home or self-care (01) ==
LOC: LAB 14:56
PROVIDERS: PCP Family Medicine; Visit Provider Nurse Practitioner Family
DX: I25.10 Atherosclerotic heart disease of native coronary artery without angina pectoris (principal); I11.0 Hypertensive heart disease with heart failure; I50.32 Chronic diastolic (congestive) heart failure; I48.0 Paroxysmal atrial fibrillation; Z95.1 Presence of aortocoronary bypass graft
CPT/HCPCS: 36415; 80048; 85025

== ENCOUNTER → 2022-03-27 | Outpatient (CLI) | payer MEDICARE, BC, SELFPAY ==
--- NOTE | 2022-03-27 06:43 | ECHOCS_ITS ---
Reason For Study: CAD/ASHD Procedure This was a 2D Doppler, Color Flow transthoracic echocardiogram. The study was technically difficult. Contrast injection was performed. Exam performed in department. Left Ventricle Normal LV size. Left ventricular systolic function is normal. The estimated ejection fraction is 60 %. No regional wall motion abnormalities noted. Right Ventricle Normal RV size. Normal systolic function. Atria Normal left atrium. Normal right atrium. Mitral Valve Normal mitral valve. Mild-Moderate (1-2+) eccentric mitral valve insufficiency. Tricuspid Valve Normal tricuspid valve. Mild tricuspid valve insufficiency. Pulmonary artery systolic pressure is 33 mmHg. Aortic Valve Trisinus/trileaflet aortic valve. Mild focal aortic valve calcification. Pulmonic Valve The pulmonic valve is not well visualized. Great Vessels Normal aortic root. The pulmonary artery is normal size. Inferior vena cava collapse with respiration. Pericardium/Pleural No pericardial effusion. Medication 20 gauge I.V. with prn adaptor inserted into left arm. Diluted definity 2ml given slow IV push to enhance endocardial definition. MMode/2D Measurements & Calculations LVIDd: 5.4 cm IVSd: 1.0 cm LA dimension: 5.0 cm LVIDs: 3.4 cm LVPWd: 1.1 cm RVDd: 3.0 cm FS: 35.9 % LAV(MOD-bp): 69.3 ml LA A4 area: 22.8 cm2 RA A4 area: 17.3 cm2 LAV(MOD-bp) Indexed: 33.8 ml/m2 LAV(MOD-sp2): 65.6 ml LAV(MOD-sp4): 69.3 ml Time Measurements MV dec time: 0.34 sec Doppler Measurements & Calculations MV E max julio: 93.7 cm/sec MV V2 max: 144.9 cm/sec MV P1/2t max julio: 144.9 cm/sec MV A max julio: 61.8 cm/sec MV max P.4 mmHg MV P1/2t: 119.2 msec MV E/A: 1.5 MV V2 mean: 62.6 cm/sec MV dec slope: 356.0 cm/sec2 MV mean P.1 mmHg MV V2 VTI: 41.1 cm MVA(P1/2t): 1.8 cm2 Ao V2 max: 180.9 cm/sec LV V1 max: 117.0 cm/sec PA V2 max: 96.1 cm/sec Ao max P.1 mmHg LV V1 max P.5 mmHg Ao V2 mean: 119.5 cm/sec LV V1 mean P.2 mmHg Ao mean P.6 mmHg LV V1 mean: 84.2 cm/sec Ao V2 VTI: 45.2 cm LV V1 VTI: 31.5 cm TR max julio: 281.0 cm/sec TR max P.7 mmHg ECHO/Echo Complete W/ Contrast Interpretation Summary Normal LV size. Left ventricular systolic function is normal. The estimated ejection fraction is 60 %. Normal left atrium. Pulmonary artery systolic pressure is 33 mmHg. Contrast injection was performed. Ordering Physician: Meng Lopez Referring Physician: Furness, Anibal Performed By: Bright Alfonso RCS
--- NOTE | 2022-03-27 10:04 | STRESSREP ---
Stress Test Report Pharmacologic mild area perfusion stress test. 67-year-old lady with a history of chest pain. Stress protocol: Resting EKG demonstrates sinus bradycardia with a rate of 52 bpm normal intervals are noted resting blood pressure is 138/70 mmHg. 0.4 mg of regadenoson was infused per usual protocol followed by Intravenous saline flush injection continuous EKG monitoring was performed. The maximum heart rate attained was 75 bpm which was 49% of max impacted heart rate the maximum workload was 1 metabolic equivalent. At rest there were no ST or T wave changes noted to suggest abnormal flow reserve and a peak infusion nonspecific ST-T wave changes were noted with did not meet criteria for ischemia. No clinical angina was noted. Myocardial perfusion protocol. 14.0 mCi of technetium 99m sestamibi was injected at rest. 0.4 mg of regadenoson was infused per usual protocol. At peak infusion 43.9 mCi of technetium 99m sestamibi was injected stress images were obtained stress and resting images were reconstructed and compared in the short axis vertical long and horizontal long axis. Gated images were also obtained to Perfusion SPECT analysis. Review of the images demonstrate normal uptake of tracer noted in all areas of the myocardium. The resting images similarly demonstrate normal uptake of tracer noted in all areas of the myocardium. No areas of reversibility are noted to suggest ischemia and no previous infarct was noted. Gated SPECT analysis: The gated ejection fraction is noted to be 53%. Conclusion: Normal pharmacologic myocardial perfusion stress test. Preserved ejection fraction.
== END | disposition home or self-care (01) ==
LOC: CVS 06:42
PROVIDERS: PCP Family Medicine; Referring Provider Nurse Practitioner Family; Visit Provider Nurse Practitioner Family
DX: I11.0 Hypertensive heart disease with heart failure (principal); I50.32 Chronic diastolic (congestive) heart failure; I48.0 Paroxysmal atrial fibrillation; I25.10 Atherosclerotic heart disease of native coronary artery without angina pectoris; Z95.1 Presence of aortocoronary bypass graft
CPT/HCPCS: 78452; 93017; 93306; A9500; Q9957; A4216; C8929; J2785

== ENCOUNTER → 2022-04-13 | Outpatient (CLI) | payer MEDICARE, BC, SELFPAY ==
--- NOTE | 2022-04-13 09:44 | CDU_ITS ---
Reason For Study: Dizziness Rt. Velocities/BP Lt. Velocities/BP Prox CCA 55.2/12.1 cm/sec. Prox CCA 88.8/15.1 cm/sec. Mid CCA 60.4/13.4 cm/sec. Mid CCA 75.3/13.9 cm/sec. Dist CCA 68.2/16 cm/sec. Dist CCA 64.2/11.4 cm/sec. Prox ICA 130.2/29.8 cm/sec. Prox ICA 67.9/16.3 cm/sec. Mid ICA 93.7/24.3 cm/sec. Mid ICA 58.6/16.5 cm/sec. Dist ICA 86.4/24.3 cm/sec. Dist ICA 96.1/24.9 cm/sec. Rt. ICA/CCA = 2.16. Lt. ICA/CCA = 1.28. Prox ECA 154.3/11.6 cm/sec. Prox ECA 94.9/10.2 cm/sec. Rt. Vert. 55.3/11.5 cm/sec. Lt. Vert. 50.7/11.4 cm/sec. Right Extracranial There is homogeneous, smooth atherosclerotic plaque noted in the right common carotid artery. There is heterogeneous, irregular atherosclerotic plaque noted in the right internal carotid artery. There is heterogeneous, irregular atherosclerotic plaque noted in the right external carotid artery. Antegrade flow is noted in the right vertebral artery. Left Extracranial There is homogeneous, smooth atherosclerotic plaque noted in the left common carotid artery. There is heterogeneous, irregular atherosclerotic plaque noted in the left internal carotid artery. There is heterogeneous, irregular atherosclerotic plaque noted in the left external carotid artery. Antegrade flow is noted in the left vertebral artery. Procedure Carotid Duplex 16717. This is a Carotid Duplex examination using B-mode, color flow and specral Doppler. Exam performed in department. VL/Carotid Duplex Ultrasound Interpretation Summary Moderate (50-69%) stenosis right extracranial internal carotid. Mild (<50%) stenosis left extracranial internal carotid. Patent and antegrade vertebrals bilaterally. Ordering Physician: Meng Lopez Referring Physician: Anibal Arellano Performed By: Lin Catalan RVT
== END | disposition home or self-care (01) ==
LOC: CVS 09:43
PROVIDERS: PCP Family Medicine; Visit Provider Nurse Practitioner Family
DX: I65.23 Occlusion and stenosis of bilateral carotid arteries (principal); I11.0 Hypertensive heart disease with heart failure; I50.32 Chronic diastolic (congestive) heart failure; I48.0 Paroxysmal atrial fibrillation; I25.10 Atherosclerotic heart disease of native coronary artery without angina pectoris; Z95.1 Presence of aortocoronary bypass graft
CPT/HCPCS: 93880

== ENCOUNTER 2022-07-12 17:13 | Emergency (ER) | payer MEDICARE, BC, SELFPAY ==
[2022-07-12] VITALS (8 sets, daily range): BP systolic 147–231; BP diastolic 50–87; PULSE 46–66; RESP 14–22; TEMP 35.6–36.8; O2SAT 93–97; BMI 42.2
--- NOTE | 2022-07-12 17:32 | ED.VIS.DYS ---
HPI History of Present Illness Chief Complaint: Shortness of Breath Informant: patient Onset/Context/Timing Onset: Weeks (2) Context: gradual Timing: Continuous Quality: Positive for Dyspnea on exertion Worsened by: Exertion Relieved by: Nothing Associated Symptoms cough and rhinorrhea; Negative for post nasal drip, ear pain, fever, sore throat, chills, sweats, clear sputum, white sputum, yellow sputum or green sputum Narrative Narrative: Patient presents with shortness of breath that has been getting worse over the last 2 weeks. Patient states it is gradually getting worse. Patient states it has been constant. Patient states it is worse with any exertion. Patient states nothing seems to help with it. Patient admits to a cough but denies any sputum production. Patient admits to some rhinorrhea. Patient denies any fevers or chills. Patient denies any chest pain. Patient denies any lower extremity swelling. PE Risk Factors: Negative for Cancer, Prior DVT or PE, Recent immobilization, Recent surgery or Recent travel [facility] Medical History Anxiety and depression Atherosclerosis of coronary artery of [place] heart without angina pectoris Chronic diastolic (congestive) heart failure Dyslipidemia Essential (primary) hypertension GERD (gastroesophageal reflux disease) Hypersomnolence disorder Hypothyroidism Left ventricular diastolic dysfunction Non-rheumatic tricuspid valve insufficiency Nonrheumatic mitral valve insufficiency Obesity (BMI 30-39.9) ROSENDO (obstructive sleep apnea) Paroxysmal atrial fibrillation Restless leg syndrome, uncontrolled Tibial plateau fracture, right Trimalleolar fracture of right ankle Home Medications levothyroxine 125 mcg tablet 125 mcg PO DAILY 07/19/15 [History Last Taken 07/12/22] pantoprazole 40 mg tablet,delayed release 40 mg PO DAILY 07/19/15 [History Last Taken 07/12/22] simvastatin 20 mg tablet 20 mg PO QHS 07/19/15 [History Last Taken 07/12/22] apixaban 5 mg tablet (Eliquis) 5 mg PO BID #60 tabs 08/22/19 [Rx Last Taken 07/12/22] aspirin 81 mg tablet,delayed release (Adult Low Dose Aspirin) 81 mg PO QDAY #90 tabs 12/06/19 [Rx Last Taken 07/12/22] escitalopram oxalate 20 mg tablet 20 mg PO DAILY 09/04/20 [History Last Taken 07/12/22] furosemide 40 mg tablet 20 mg PO DAILY 09/04/20 [History Last Taken 07/12/22] latanoprost 0.005 % eye drops 1 drp ophthalmic (eye) DAILY 09/04/20 [History Last Taken 07/12/22] spironolactone 50 mg tablet (Aldactone) 50 mg PO DAILY #90 tabs 03/05/21 [Rx Last Taken 07/12/22] metoprolol tartrate 50 mg tablet 50 mg PO BID #180 tabs 03/09/22 [Rx Last Taken 07/12/22] losartan 100 mg tablet 100 mg PO DAILY #90 tabs 04/13/22 [Rx Last Taken 07/12/22] Allergy/AdvReac Type Severity Reaction Status Date / Time latex Allergy Rash Verified 04/13/22 14:59 Sulfa (Sulfonamide Allergy Rash Verified 04/13/22 14:59 Antibiotics) atorvastatin calcium AdvReac Other Verified 04/13/22 14:59 [From Lipitor] Opioids - Morphine Analogues AdvReac Other Verified 04/13/22 14:59 CILLINS Allergy Rash Uncoded 04/13/22 14:59 Family History Father CAD (coronary artery disease) Hypertension Mother CAD (coronary artery disease) Hypertension Breast cancer Brother CAD (coronary artery disease) Hypertension TIA (transient ischemic attack) Brother Myocardial infarction cabg Surgical History H/O coronary artery bypass surgery (12/04/14) H/O knee surgery H/O: hysterectomy Social History Smoking Status: Never smoker alcohol intake: current alcohol intake frequency: a few times a month substance use type: does not use caffeine: No ROS ROS ED Constitutional Constitutional ED: Denies chills or fever(s) Eyes Eyes: Reports blurry vision; Denies diplopia ENT ENT ED: Reports rhinorrhea; Denies sore throat Cardiovascular Cardiovascular: Denies chest pain or palpitations Respiratory/Chest Respiratory/Chest: Reports cough and dyspnea Gastrointestinal Gastrointestinal: Denies nausea or vomiting Genitourinary Genitourinary ED: Denies dysuria or hematuria Musculoskeletal Musculoskeletal: Denies back pain or neck pain Integumentary Denies abscess or rash Neurologic Neurologic: Denies headache(s) or weakness Allergic/Immunologic Allergic/Immunologic ED: Denies mouth swelling or urticaria EXAM Physical Exam Const Vital Signs: 07/12/22 17:15 07/12/22 17:25 07/12/22 18:09 Temperature 96.0 F L Temperature Source Temporal Pulse Rate 66 55 L Respiratory Rate 22 H 18 Respiratory Effort Normal Non-Labored Respiratory Depth Normal Respiratory Pattern Normal Normal Blood Pressure 231/87 H Blood Pressure Mean 135 Pulse Ox 96 Oxygen Delivery Method Room Air Room Air 07/12/22 18:27 07/12/22 19:46 07/12/22 21:00 Temperature 98.2 F Temperature Source Oral Pulse Rate 53 L 52 L 48 L Respiratory Rate 16 16 14 Respiratory Effort Respiratory Depth Respiratory Pattern Blood Pressure 173/70 H 193/67 H 195/58 H Blood Pressure Mean 104 109 103 Pulse Ox 95 93 97 Oxygen Delivery Method Room Air Room Air Room Air 07/12/22 21:17 Temperature Temperature Source Pulse Rate 46 L Respiratory Rate 16 Respiratory Effort Respiratory Depth Respiratory Pattern Blood Pressure 164/64 H Blood Pressure Mean 97 Pulse Ox 95 Oxygen Delivery Method Room Air Positive well nourished, well developed and obese General Appearance ED: well developed and NAD Nutritional Appearance: obese HEENT Reports moist mucous membranes Neck supple and no JVD Resp normal respiratory effort and clear to auscultation bilaterally Cardio regular rate, regular rhythm and no murmurs GI normal to inspection, nondistended, normoactive bowel sounds and non-tender Palpation: soft Extremity normal to inspection General Extremety ED: Negative for edema or tenderness General Extremity: Negative for edema Neuro oriented x3, CN's II-XII intact bilaterally and no sensory deficits noted Sensorium / Orientation: alert Motor Exam: strength 5/5 throughout Psych mental status grossly normal Skin no rashes or lesions noted MDM MDM MDM Narrative Medical decision making narrative: EKG was obtained. On my interpretation, it showed a sinus bradycardia with a rate of 53. VA interval, QRS interval, and QTc intervals were all normal. [place] was normal. There are no acute ST or T wave changes. PA and lateral chest x-ray was obtained. There are 2 views. On my interpretation, lung abraham showed mild pulmonary congestion. There is normal cardiac silhouette. Bony thorax is normal. There is no acute process noted. Radiologist also interpreted the x-ray and agrees. CBC shows a mild leukocytosis of 14.6. D-dimer was normal. Patient comprehensive metabolic profile showed a slightly elevated glucose of 222. High-sensitivity troponin was normal. BNP was elevated at 518.3. Patient was given a DuoNeb aerosol here. Patient was given a dose of Lasix. Patient was instructed to continue her Lasix and spironolactone as scheduled. Patient was concerned about her blood pressure and wanted something to help with her blood pressure. Patient was given a dose of clonidine here. Patient's blood pressure improved to 147/50. Patient feels better on reevaluation. Patient feels comfortable going home. Patient was instructed to follow-up with her primary care physician and nurse case management in 3 to 5 days. Patient was instructed return if worse in any way. Patient understood and was agreeable with the plan. All questions were answered. Lab Data Attestation: I reviewed the patient's lab results. Labs: Laboratory Results - last 24 hr 07/12/22 07/12/22 07/12/22 17:56 17:56 17:56 WBC 14.6 H RBC 4.59 Hgb 13.8 Hct 41.2 MCV 89.8 MCH 30.1 MCHC 33.5 RDW Std Deviation 46.0 H RDW Coeff of Ayesha 14.0 Plt Count 197 MPV 11.8 Immature Gran % (Auto) 1.400 H Neut % (Auto) 83.9 H Lymph % (Auto) 7.6 L Kleberg % (Auto) 6.3 Eos % (Auto) 0.3 Baso % (Auto) 0.5 Absolute Neuts (auto) 12.2 H Absolute Lymphs (auto) 1.11 Nucleated RBC % 0 D-Dimer Quant (PE/DVT) < 0.27 L Sodium 141 Potassium 4.1 Chloride 105 Carbon Dioxide 25.0 Anion Gap 11 BUN 17 Creatinine 0.76 Estim Creat Clear Calc 43.92 Est GFR (MDRD) Af Amer 98 Est GFR (MDRD) Non-Af 81 BUN/Creatinine Ratio 22.5 H Glucose 222 H Calcium 9.7 Total Bilirubin 0.70 AST 30 ALT 49 Alkaline Phosphatase 55 Troponin I High Sens 16 B-Natriuretic Peptide Total Protein 7.1 Albumin 4.0 Globulin 3.1 Albumin/Globulin Ratio 1.3 07/12/22 17:56 WBC RBC Hgb Hct MCV MCH MCHC RDW Std Deviation RDW Coeff of Ayesha Plt Count MPV Immature Gran % (Auto) Neut % (Auto) Lymph % (Auto) Kleberg % (Auto) Eos % (Auto) Baso % (Auto) Absolute Neuts (auto) Absolute Lymphs (auto) Nucleated RBC % D-Dimer Quant (PE/DVT) Sodium Potassium Chloride Carbon Dioxide Anion Gap BUN Creatinine Estim Creat Clear Calc Est GFR (MDRD) Af Amer Est GFR (MDRD) Non-Af BUN/Creatinine Ratio Glucose Calcium Total Bilirubin AST ALT Alkaline Phosphatase Troponin I High Sens B-Natriuretic Peptide 518.3 H Total Protein Albumin Globulin Albumin/Globulin Ratio Radiography Chest X-Ray - ED: 2 View, Read by ED Physician, Read by Radiologist and CHF (Mild) Diagnostic Testing: Clinical Impression(s) from Imaging Studies Chest X-Ray 07/12/22 18:40 IMPRESSION: Mild congestive heart failure. Electronically Signed: Karlo Lundberg MD at 19:03 EST , EKG Initial EKG: Attestation: I personally reviewed and interpreted this EKG as follows: Interpretation: No Acute Injury Pattern and Sinus Bradycardia (53) Prior EKG tracings: available for review Prior: Unchanged (02/24/2021) Discharge Plan Triage Chief Complaint: Shortness of Breath ED Provider: Dean Lou Dx/Rx/DC Orders Clinical Impression: Dyspnea, Chronic diastolic (congestive) heart failure Instructions: ED Heart Failure, Congestive (CHF), ED Dyspnea Prescriptions: No Action escitalopram oxalate 20 mg tablet 20 mg PO DAILY latanoprost 0.005 % drops 1 drp OPHTHALMIC DAILY furosemide 40 mg tablet 20 mg PO DAILY Label Comments: water pill spironolactone [Aldactone] 50 mg tablet 50 mg PO DAILY Qty: 90 3RF metoprolol tartrate 50 mg tablet 50 mg PO BID Qty: 180 3RF losartan 100 mg tablet 100 mg PO DAILY Qty: 90 3RF pantoprazole 40 MG tablet 40 mg PO DAILY Label Comments: ACID REFLUX simvastatin 20 MG tablet 20 mg PO QHS Label Comments: CHOLESTEROL levothyroxine 125 MCG tablet 125 mcg PO DAILY Label Comments: THYROID Eliquis 5 mg tablet 5 mg PO BID Qty: 60 11RF aspirin [Adult Low Dose Aspirin] 81 mg tablet,delayed release (DR/EC) 81 mg PO QDAY Qty: 90 3RF Primary Care Provider: Anibal Arellano Referrals: Anibal Arellano MD [Primary Care Provider] - 3-5 Days Disposition Disposition: Home, Self Care
--- NOTE | 2022-07-12 17:38 | EKG12_ITS ---
Test Reason : SOB Blood Pressure : / mmHG Vent. Rate : 053 BPM Atrial Rate : 053 BPM P-R Int : 132 ms QRS Dur : 082 ms QT Int : 480 ms P-R-T Axes : 052 034 032 degrees QTc Int : 450 ms Sinus bradycardia Cannot rule out Inferior infarct , age undetermined Abnormal ECG Confirmed by FIORDALIZA RAO, ARSALAN ([id number]), assignment editor GARRY GREENE ([id number]) on 07/14/2022 11:23:26 AM Referred By: MONA Confirmed By:ARSALAN MANCERA MD
[2022-07-12 18:05] LABS: Absolute Lymphocyte Count 1.11 X10^3/uL (0.83-4.51); Absolute Neutrophil Count 12.2 X10^3/uL (2.0-7.7); Basophil# 0.07 X10^3/uL; Basophil% 0.5 % (0-1); Eosinophil# 0.04 X10^3/uL; Eosinophils% 0.3 % (0-5); Hematocrit 41.2 % (37-47); Hemoglobin 13.8 g/dL (12.0-15.0); Lymphocyte # 1.11 X10^3/ul (0.83-4.51); Lymphocyte % 7.6 % (19-41); Mean Corp Hgb Conc 33.5 g/dL (32-36); Mean Corpuscular Hgb 30.1 pg (27.0-32.0); Mean Corpuscular Volume 89.8 fL (81-99); Mean Platelet Vol. 11.8 fl (6.2-12.0); Monocyte# 0.92 X10^3/uL; Monocyte% 6.3 % (0-10); NRBC Flagged by Analyzer 0 % (0-5); Neutrophil # 12.21 X10^3/uL (2.7-7.7); Neutrophil % 83.9 % (47-70); Platelet Count 197 K/mm3 (150-450); Red Blood Count 4.59 M/mm3 (4.2-5.4); White Blood Count 14.6 K/mm3 (4.4-11.0)
[2022-07-12] MEDS: Ipratropium/Albuterol Sulfate 3 ML AMPUL.NEB INHALATION (18:07)
[2022-07-12 18:18] LABS: D-Dimer Quantitative (DVT/PE) < 0.27 FEU/ug/m (0.27-0.49)
[2022-07-12 18:19] LABS: ALB/GLOB Ratio 1.3 RATIO (0.9-2.4); AST(SGOT) 30 U/L (15-37); Alanine Aminotransfer ALT/SGPT 49 U/L (13-56); Alkaline Phosphatase 55 U/L (45-117); Anion Gap 11 (5-15); BUN 17 mg/dL (7-18); BUN/Creat Ratio 22.5 RATIO (10-20); Calcium,Total 9.7 mg/dL (8.5-10.1); Chloride 105 mmol/L (98-107); Creatinine, Serum 0.76 mg/dL (0.55-1.02); EST Glomerular Filtration Rate 81 mL/min (>60); Est Glom Filt Rate - Afr Amer 98 mL/min (>60); Estimated Creatinine Clearance 43.92 ml/min; Globulin 3.1 g/dL (2.2-4.2); Glucose 222 mg/dL (74-106); Potassium 4.1 mmol/L (3.5-5.1); Protein, Total 7.1 g/dL (6.4-8.2); Sodium Level 141 mmol/L (136-145); Troponin-I HS 16 pg/mL (3.0-54.0)
[2022-07-12 18:29] LABS: BNP,B-Type NATRIURETIC PEPTIDE 518.3 pg/mL (0-100)
--- NOTE | 2022-07-12 18:40 | RAD_ITS ---
STUDY: X-RAY CHEST REASON FOR EXAM: Female, 67 years old. Dyspnea TECHNIQUE: PA and lateral views of the chest. COMPARISON: 02/24/2021 FINDINGS: Status post median sternotomy. The lungs are clear and expanded. Slightly elevated right hemidiaphragm which is unchanged. There is moderate cardiac enlargement. Normal mediastinum and bertram. There is prominence of the pulmonary hilar arteries and peripheral pulmonary arteries, consistent with congestive heart failure (CHF). Normal visualized aortic arch and descending thoracic aorta. Normal visualized thoracic spine. Normal visualized ribs, clavicles, and shoulders. There is no demonstrated abnormality of the visualized soft tissue structures of the upper abdomen. RAD/Chest PA and Lateral IMPRESSION: Mild congestive heart failure. Electronically Signed: Karlo Lundberg MD at 19:03 EST ,
[2022-07-12] MEDS: Furosemide 40 MG/4 ML Vial IV (19:41)
[2022-07-12] MEDS: cloNIDine HCl 0.1 MG Tablet PO (20:28)
== END 2022-07-12 21:44 | disposition home or self-care (01) ==
PROVIDERS: Emergency Provider Emergency Medicine; PCP Family Medicine; Visit Provider Emergency Medicine
DX: R06.00 Dyspnea, unspecified (principal); I11.0 Hypertensive heart disease with heart failure; I50.32 Chronic diastolic (congestive) heart failure; I48.0 Paroxysmal atrial fibrillation; E78.5 Hyperlipidemia, unspecified; R73.9 Hyperglycemia, unspecified; I25.10 Atherosclerotic heart disease of native coronary artery without angina pectoris; Z79.82 Long term (current) use of aspirin; Z79.01 Long term (current) use of anticoagulants; Z79.899 Other long term (current) drug therapy
CPT/HCPCS: 71046; 80053; 83880; 84484; 85025; 85379; 87428; 93005; 94640; 96374; 99285; A4216; J1940

== ENCOUNTER 2022-07-13 22:26 | Emergency (ER) | payer MEDICARE, BC, SELFPAY ==
[2022-07-13 22:29] VITALS: BP 212/98; PULSE 65; RESP 14; TEMP 36.2; O2SAT 98; BMI 40.5
[2022-07-13 22:51] VITALS: RESP 17
--- NOTE | 2022-07-13 23:12 | EX.ED.DYSGE1 ---
HPI History of Present Illness Chief Complaint: Hypertension Detail of Chief Complaint: Patient presents for elevated blood pressure. Informant: patient Onset/Context/Timing Onset: Today Timing: Continuous Current Severity: Mild Maximum Severity: Mild Narrative Narrative: 67-year-old female history of hypertension for which she is treated with spironolactone, metoprolol and Lasix. Also has a history of anxiety, reflux and A. fib. She is on Eliquis. States that she is knows her blood pressure was up today systolic between 190 and 210. Diastolics been around 84. She denies any chest pain. No severe headache. No neurological symptoms. She was seen and treated yesterday and had unremarkable work-up. Prior similar symptoms: Yes Recent Illness/Hospitalization: No PFSH PFSH Medical History Anxiety and depression Atherosclerosis of coronary artery of [place] heart without angina pectoris Chronic diastolic (congestive) heart failure Dyslipidemia Essential (primary) hypertension GERD (gastroesophageal reflux disease) Hypersomnolence disorder Hypothyroidism Left ventricular diastolic dysfunction Non-rheumatic tricuspid valve insufficiency Nonrheumatic mitral valve insufficiency Obesity (BMI 30-39.9) ROSENDO (obstructive sleep apnea) Paroxysmal atrial fibrillation Restless leg syndrome, uncontrolled Tibial plateau fracture, right Trimalleolar fracture of right ankle Home Medications levothyroxine 125 mcg tablet 125 mcg PO DAILY 07/19/15 [History Last Taken 07/12/22] pantoprazole 40 mg tablet,delayed release 40 mg PO DAILY 07/19/15 [History Last Taken 07/12/22] simvastatin 20 mg tablet 20 mg PO QHS 07/19/15 [History Last Taken 07/12/22] apixaban 5 mg tablet (Eliquis) 5 mg PO BID #60 tabs 08/22/19 [Rx Last Taken 07/12/22] aspirin 81 mg tablet,delayed release (Adult Low Dose Aspirin) 81 mg PO QDAY #90 tabs 12/06/19 [Rx Last Taken 07/12/22] escitalopram oxalate 20 mg tablet 20 mg PO DAILY 09/04/20 [History Last Taken 07/12/22] furosemide 40 mg tablet 20 mg PO DAILY 09/04/20 [History Last Taken 07/12/22] latanoprost 0.005 % eye drops 1 drp ophthalmic (eye) DAILY 09/04/20 [History Last Taken 07/12/22] spironolactone 50 mg tablet (Aldactone) 50 mg PO DAILY #90 tabs 03/05/21 [Rx Last Taken 07/12/22] metoprolol tartrate 50 mg tablet 50 mg PO BID #180 tabs 03/09/22 [Rx Last Taken 07/12/22] losartan 100 mg tablet 100 mg PO DAILY #90 tabs 04/13/22 [Rx Last Taken 07/12/22] Allergy/AdvReac Type Severity Reaction Status Date / Time latex Allergy Rash Verified 07/13/22 22:29 Penicillins [cillians] Allergy Other Verified 07/13/22 22:29 Sulfa (Sulfonamide Allergy Rash Verified 07/13/22 22:29 Antibiotics) atorvastatin calcium AdvReac Other Verified 07/13/22 22:29 [From Lipitor] Opioids - Morphine Analogues AdvReac Other Verified 07/13/22 22:29 Family History Father CAD (coronary artery disease) Hypertension Mother CAD (coronary artery disease) Hypertension Breast cancer Brother CAD (coronary artery disease) Hypertension TIA (transient ischemic attack) Brother Myocardial infarction cabg Surgical History H/O coronary artery bypass surgery (12/04/14) H/O knee surgery H/O: hysterectomy Social History Smoking Status: Never smoker alcohol intake: current alcohol intake frequency: a few times a month substance use type: does not use caffeine: No ROS ROS ED ROS Narrative Denies recent illness. Review of Systems ROS Unobtainable: Denies due to encephalopathy Constitutional Constitutional ED: Denies chills or fever(s) Eyes Eyes: Denies blurry vision ENT ENT ED: Denies ear pain Cardiovascular Cardiovascular: Denies chest pain Respiratory/Chest Respiratory/Chest: Denies cough or dyspnea Gastrointestinal Gastrointestinal: Denies abdominal pain Genitourinary Genitourinary ED: Denies dysuria or hematuria Musculoskeletal Musculoskeletal: Denies arthralgias Integumentary Denies abscess Neurologic Neurologic: Denies headache(s) Psychiatric Psychiatric: Denies anxiety Endocrine Endocrinology: Denies cold intolerance Hematologic/Lymphatic Hematologic/Lymphatic: Reports none Allergic/Immunologic Allergic/Immunologic ED: Denies mouth swelling or tongue swelling EXAM Physical Exam Narrative Exam Narrative: Well-appearing 67-year-old female. Initial blood pressure 212/98. Otherwise vital signs stable afebrile. Pulse ox 98% on room air no hypoxia. H EENT exam unremarkable. No facial droop. Normal speech. Neck nontender no JVD. Lungs clear to auscultation bilaterally. Heart regular rate and rhythm rate about 65 no murmur. Chest wall nontender. Abdomen soft nontender. Moving all 4 extremities. Calves are nontender without edema or cords. Normal motor strength with 5/5 paralegal specialist strength. Dorsi plantarflexion intact. Neurologically she is awake and alert with no focal motor deficits. Const Vital Signs: 07/13/22 22:29 07/13/22 22:51 07/13/22 23:23 Temperature 97.1 F L Temperature Source Temporal Pulse Rate 65 Respiratory Rate 14 17 Blood Pressure 212/98 H 146/68 H Blood Pressure Mean 136 94 Pulse Ox 98 Oxygen Delivery Method Room Air Positive well nourished, well developed and obese; Negative for cachectic, contractures or unkempt General Appearance ED: well developed and NAD; Negative for unkempt, cachectic, contractures, cyanotic or diaphoretic Nutritional Appearance: obese; Negative for cachectic HEENT Reports moist mucous membranes; Denies dry mucous membranes Negative for trauma or tenderness Mouth ED: No dry mucous membranes Mouth: No dry mucous membranes Eyes PERRL and EOMs intact bilaterally General Eye ED: Negative for pale conjunctiva or scleral icterus Neck no lymphadenopathy, supple and no JVD General: Negative for tenderness Lymph Lymphatic: Negative for other Chest Wall inspection of chest normal and palpation of chest normal Chest: Negative for other Resp normal respiratory effort and clear to auscultation bilaterally Effort and Inspection: Negative for retractions Auscultation: Negative for rales, rhonchi or wheezes Cardio regular rate, regular rhythm, S1 normal heart sound, S2 normal heart sound and no murmurs Palpation: Negative for palpable S3 Rate: Negative for bradycardia Rhythm: Negative for abnormal rhythm GI normal to inspection, nondistended, normoactive bowel sounds, non-tender, non-distended and no masses Inspection: Negative for abdominal distention Auscultation: normoactive bowel sounds Palpation: soft; Negative for tender, guarding, splenomegaly or mass Back/Spine no CVA tenderness General Back: Negative for CVA tenderness Cervical Spine: Negative for cervical spine tenderness Thoracic Spine / Upper Back: Negative for thoracic spinal tenderness Lumbar Spine / Lower Back: Negative for lumbar spinal tenderness Extremity normal to inspection General Extremety ED: Negative for edema or tenderness General Extremity: Negative for edema Neuro oriented x3 and CN's II-XII intact bilaterally Sensorium / Orientation: alert; Negative for orientation impaired, lethargic or stuporous Motor Exam: strength 5/5 throughout Psych mental status grossly normal Appearance: Negative for unkempt Attitude: No agitated Mood & Affect: Negative for depressed or anxious Skin no rashes or lesions noted General Skin Exam: elasticity normal Lesions: No lesion noted Rashes: No rashes noted Trauma: Negative for abrasion Wounds: Negative for wounds noted MDM MDM MDM Narrative Medical decision making narrative: 67-year-old presents with acute on chronic hypertension. Initial blood pressure 212/98. It will be rechecked to determine if we need to treat it or she can to be discharged home with outpatient follow-up. I did review her work-up from last night. I do not think she needs any additional testing at this time. Repeat blood pressure is 146/68. Repeat exam doing well at 11:34 PM. She will be discharged home. Outpatient follow-up for blood pressure. Discharge Plan Triage Chief Complaint: Hypertension ED Provider: Martinez De Leon Dx/Rx/DC Orders Clinical Impression: Essential (primary) hypertension, History of atrial fibrillation, Chronic anticoagulation Instructions: ED High Blood Pressure Hypertension Prescriptions: No Action escitalopram oxalate 20 mg tablet 20 mg PO DAILY latanoprost 0.005 % drops 1 drp OPHTHALMIC DAILY furosemide 40 mg tablet 20 mg PO DAILY Label Comments: water pill spironolactone [Aldactone] 50 mg tablet 50 mg PO DAILY Qty: 90 3RF metoprolol tartrate 50 mg tablet 50 mg PO BID Qty: 180 3RF losartan 100 mg tablet 100 mg PO DAILY Qty: 90 3RF pantoprazole 40 MG tablet 40 mg PO DAILY Label Comments: ACID REFLUX simvastatin 20 MG tablet 20 mg PO QHS Label Comments: CHOLESTEROL levothyroxine 125 MCG tablet 125 mcg PO DAILY Label Comments: THYROID Eliquis 5 mg tablet 5 mg PO BID Qty: 60 11RF aspirin [Adult Low Dose Aspirin] 81 mg tablet,delayed release (DR/EC) 81 mg PO QDAY Qty: 90 3RF Primary Care Provider: Anibal Arellano Referrals: Anibal Arellano MD [Primary Care Provider] - 1 Week if not improving Activity Restrictions/Additional Instructions: Log your blood pressures twice daily. Follow-up with your primary care physician or your creative arts therapist to see if you need to have your blood pressure medications adjusted. Take your medications as prescribed. Disposition Disposition: Home, Self Care
[2022-07-13 23:23] VITALS: BP 146/68
== END 2022-07-13 23:54 | disposition home or self-care (01) ==
PROVIDERS: Emergency Provider Emergency Medicine; PCP Family Medicine; Visit Provider Emergency Medicine
DX: I11.0 Hypertensive heart disease with heart failure (principal); I50.32 Chronic diastolic (congestive) heart failure; I48.0 Paroxysmal atrial fibrillation; I25.10 Atherosclerotic heart disease of native coronary artery without angina pectoris; E78.5 Hyperlipidemia, unspecified; F41.9 Anxiety disorder, unspecified; E66.9 Obesity, unspecified; Z79.01 Long term (current) use of anticoagulants; Z79.899 Other long term (current) drug therapy
CPT/HCPCS: 99282; A4216

== ENCOUNTER → 2022-07-30 | Outpatient (CLI) | payer MEDICARE, BC, SELFPAY | END | disposition home or self-care (01) | LOC: PSN 10:54 | PROVIDERS: PCP Family Medicine; Visit Provider Nurse Practitioner Gerontology | DX: R42 Dizziness and giddiness (principal); Z86.79 Personal history of other diseases of the circulatory system | CPT/HCPCS: 93225; 93226 ==

== ENCOUNTER → 2022-09-01 | Outpatient (CLI) | payer MEDICARE, BC, SELFPAY ==
[2022-09-01 12:27] LABS: Anion Gap 9 (5-15); BUN 14 mg/dL (7-18); BUN/Creat Ratio 20.4 RATIO (10-20); Calcium,Total 9.8 mg/dL (8.5-10.1); Chloride 104 mmol/L (98-107); Creatinine, Serum 0.68 mg/dL (0.55-1.02); EST Glomerular Filtration Rate 90 mL/min (>60); Est Glom Filt Rate - Afr Amer 109 mL/min (>60); Glucose 170 mg/dL (74-106); Magnesium 2.1 mg/dL (1.6-2.6); Potassium 3.8 mmol/L (3.5-5.1); Sodium Level 139 mmol/L (136-145); Thyroid Stim Hormone (TSH) 1.97 uIU/mL (0.358-3.74)
[2022-09-04 19:22] LABS: Vitamin D 1,25-Dihydroxy 44.9 pg/mL (24.8-81.5)
== END | disposition home or self-care (01) ==
PROVIDERS: PCP Family Medicine; Referring Provider Nurse Practitioner Gerontology; Visit Provider Nurse Practitioner Gerontology
DX: I50.32 Chronic diastolic (congestive) heart failure (principal); R53.83 Other fatigue
CPT/HCPCS: 36415; 80048; 82652; 83735; 84443

== ENCOUNTER → 2024-02-24 | Outpatient (CLI) | payer MEDICARE, BC, SELFPAY ==
--- NOTE | 2024-02-24 13:41 | CDU_ITS ---
Reason For Study: Dizziness Rt. Velocities/BP Lt. Velocities/BP Prox CCA 57.9/14.5 cm/sec. Prox CCA 112.6/16 cm/sec. Mid CCA 58.9/12.6 cm/sec. Mid CCA 108.2/22.6 cm/sec. Dist CCA 77.8/19.2 cm/sec. Dist CCA 71.6/16.3 cm/sec. Prox ICA 155.7/26.1 cm/sec. Prox ICA 79.1/18.8 cm/sec. Mid ICA 91.9/18.8 cm/sec. Mid ICA 79.1/20.6 cm/sec. Dist ICA 93.7/22.5 cm/sec. Dist ICA 70/17 cm/sec. Rt. ICA/CCA = 2.64. Lt. ICA/CCA = 0.73. Prox ECA 291.9/30.1 cm/sec. Prox ECA 128.4/17 cm/sec. Rt. Vert. 50.4/8.8 cm/sec. Lt. Vert. 44.3/9.1 cm/sec. Right Extracranial There is heterogeneous, irregular atherosclerotic plaque noted in the right common carotid artery. There is heterogeneous, irregular atherosclerotic plaque noted in the right internal carotid artery. There is heterogeneous, irregular atherosclerotic plaque noted in the right external carotid artery. Antegrade flow is noted in the right vertebral artery. Left Extracranial There is homogeneous, smooth atherosclerotic plaque noted in the left common carotid artery. There is heterogeneous, irregular atherosclerotic plaque noted in the left internal carotid artery. There is heterogeneous, irregular atherosclerotic plaque noted in the left external carotid artery. Antegrade flow is noted in the left vertebral artery. Procedure This is a Carotid Duplex examination using B-mode, color flow and specral Doppler. Carotid Duplex [id number]. Exam performed in department. VL/Carotid Duplex Ultrasound Interpretation Summary Irregular partially calcific plaque at the proximal right internal carotid karissa ry with less than 50% stenosis but closer to that range. Greater than 50% stenosis right external carotid artery Lesser degree of irregular plaque at the proximal left internal carotid artery with less than 50% stenosis Less than 50% stenosis left external carotid artery Patent antegrade vertebral arteries bilaterally The greater than 50% stenosis of the right external carotid artery is new from the previous examination of April 13, 2022 Ordering Physician: Montserrat Prasad Referring Physician: Anibal Arellano Performed By: Lin Catalan RVT
== END | disposition home or self-care (01) ==
LOC: CVS 13:38
PROVIDERS: PCP Family Medicine; Referring Provider Nurse Practitioner Gerontology; Visit Provider Nurse Practitioner Gerontology
DX: R42 Dizziness and giddiness (principal)
CPT/HCPCS: 93880

== ENCOUNTER 2024-06-20 12:55 | Inpatient (IN) | payer MEDICARE, BC, SELFPAY ==
[2024-06-20] VITALS (24 sets, daily range): BP systolic 79–163; BP diastolic 45–103; PULSE 73–147; RESP 15–26; TEMP 36.9–37.3; O2SAT 95–99; BMI 40.9; BMI 39.5
--- NOTE | 2024-06-20 13:23 | EKG12_ITS ---
Test Reason : CP Blood Pressure : / mmHG Vent. Rate : 139 BPM Atrial Rate : 000 BPM P-R Int : 000 ms QRS Dur : 092 ms QT Int : 322 ms P-R-T Axes : 000 030 -39 degrees QTc Int : 489 ms ATRIAL FLUTTER 2:1 Possible Inferior infarct (cited on or before 12-JUL-2022) Abnormal ECG Confirmed by FIORDALIZA RAO, ARSALAN ([id number]), metropolitan editor KATHIE RUTLEDGE ([id number]) on 06/21/2024 10:09:18 AM Referred By: Confirmed By:ARSALAN MANCERA MD
[2024-06-20] MEDS: Adenosine 6 MG/2 ML Syringe IV (13:30)
[2024-06-20 13:32] LABS: Absolute Lymphocyte Count 2.84 X10^3/uL (0.83-4.51); Absolute Neutrophil Count 6.5 X10^3/uL (2.0-7.7); Basophil# 0.06 X10^3/uL; Basophil% 0.6 % (0-1); Eosinophil# 0.06 X10^3/uL; Eosinophils% 0.6 % (0-5); Hematocrit 41.7 % (37-47); Hemoglobin 14.4 g/dL (12.0-15.0); Lymphocyte # 2.84 X10^3/ul (0.83-4.51); Lymphocyte % 27.2 % (19-41); Mean Corp Hgb Conc 34.5 g/dL (32-36); Mean Corpuscular Hgb 29.8 pg (27.0-32.0); Mean Corpuscular Volume 86.2 fL (81-99); Mean Platelet Vol. 12.1 fl (6.2-12.0); Monocyte# 0.85 X10^3/uL; Monocyte% 8.1 % (0-10); NRBC Flagged by Analyzer 0 % (0-5); Neutrophil # 6.52 X10^3/uL (2.7-7.7); Neutrophil % 62.4 % (47-70); Platelet Count 265 K/mm3 (150-450); RBC Distribution Width CV 13.3 % (11.6-14.6); RBC Distribution Width SD 41.1 fl (35.1-43.9); Red Blood Count 4.84 M/mm3 (4.2-5.4); White Blood Count 10.4 K/mm3 (4.4-11.0)
--- NOTE | 2024-06-20 13:38 | RAD_ITS ---
STUDY: X-RAY CHEST REASON FOR EXAM: Female, 69 years old. Cad TECHNIQUE: Single AP portable view of the chest. COMPARISON: Comparison is made with prior study dated July 12, 2022. FINDINGS: EKG electrodes are seen. Stable mild elevation of the right hemidiaphragm. Calcified left granuloma. There is no demonstrated pleural abnormality. Sternal cerclage wires are present from a prior sternotomy. Cardiomegaly. Calcified left hilar lymph nodes. Normal visualized pulmonary arteries. There is atherosclerotic calcification of the aortic arch with tortuosity. There are degenerative changes of the visualized thoracic spine. Normal visualized ribs, clavicles, and shoulders. There is no demonstrated abnormality of the visualized soft tissue structures of the upper abdomen. RAD/Chest 1 View (Portable) IMPRESSION: Cardiomegaly. No acute abnormality is seen. Electronically Signed: Timmy Swanson MD at 13:49 EDT ,
[2024-06-20 13:47] LABS: Anion Gap 12 (5-15); BUN 10 mg/dL (7-18); BUN/Creat Ratio 12.8 RATIO (10-20); Calcium,Total 9.5 mg/dL (8.5-10.1); Chloride 101 mmol/L (98-107); Creatinine, Serum 0.78 mg/dL (0.55-1.02); EST Glomerular Filtration Rate 77 mL/min (>60); Est Glom Filt Rate - Afr Amer 93 mL/min (>60); Glucose 217 mg/dL (74-106); Magnesium 1.5 mg/dL (1.6-2.6); Potassium 2.9 mmol/L (3.5-5.1); Sodium Level 140 mmol/L (136-145); Troponin-I HS 28 pg/mL (3.0-54.0)
[2024-06-20] MEDS: Potassium Chloride 10mEq/100mL 10 MEQ/100 ML IV.SOLN. 100 MEQ IV BOLUS ×4 (14:19→23:00)
[2024-06-20] MEDS: dilTIAZem 25 MG/5 ML Vial 20 MG IV BOLUS (14:23)
[2024-06-20] MEDS: Magnesium Sulfate 2 GM in Dextrose 5%-Water (100mL Bag) 100 ML IV ×2 (14:28→16:50)
[2024-06-20] MEDS: Diltiazem 125 MG in Dextrose 5%-Water (100mL Bag) 100 ML IV (14:30)
--- NOTE | 2024-06-20 15:07 | HP.PCM.HOS_ITS ---
HPI - General General Date of Admission: 06/20/24 Date of Service: 06/20/24 Chief Complaint: Lightheaded, fast HR HPI Narrative DAVIN OQUENDO, is a 69 F history of ROSENDO, CAD status post CABG, GERD, hypothyroidism morbid obesity presented to [facility] ED 06/20/2024 with fast heart rate. Patient usually sinus bradycardia but yesterday noted when she took her blood pressure that heart rate was 130s to 140s, called her doctor office and was told to take a pill to attempt to convert it over she took this without success. Today she was lightheaded and still had heart rate in the 140s so she presented to the ED. In ED patient noted to be in a flutter, adenosine given which did reveal flutter waves, cardiology contacted and recommended Cardizem and to replace magnesium and potassium prior to considering cardioversion or other intervention. Patient placed on Cardizem, given magnesium and potassium and hospitalist contacted for admission. Patient evaluated at bedside. Patient reports history as above and that she has not had a great appetite over the past couple of days and has some vague nausea and this morning was feeling lightheaded, with rate improving the symptoms have resolved. No fevers or chills, has some chronic swelling after she broke her ankle and right lower extremity however no new or changes in swelling, no chest pain, no shortness of breath or cough, no diarrhea or abdominal pain. ROS otherwise negative [facility] Medical History (Reviewed 02/03/24 @ 12:30 by Montserrat Prasad SAS PROGRAMMER ANALYST, SAS PROGRAMMER ANALYST-C) Chronic diastolic (congestive) heart failure Left ventricular diastolic dysfunction Atherosclerosis of coronary artery of [place] heart without angina pectoris Essential (primary) hypertension Restless leg syndrome, uncontrolled ROSENDO (obstructive sleep apnea) Hypersomnolence disorder Paroxysmal atrial fibrillation Nonrheumatic mitral valve insufficiency Non-rheumatic tricuspid valve insufficiency Dyslipidemia Tibial plateau fracture, right Trimalleolar fracture of right ankle Obesity (BMI 30-39.9) GERD (gastroesophageal reflux disease) Hypothyroidism Anxiety and depression Home Medications ?Medication ?Instructions ?Recorded ?Last Taken ?Type levothyroxine 125 mcg tablet 125 mcg PO DAILY 07/19/15 07/12/22 History pantoprazole 40 mg tablet,delayed 40 mg PO DAILY 07/19/15 07/12/22 History release simvastatin 20 mg tablet 20 mg PO QHS 07/19/15 07/12/22 History apixaban 5 mg tablet (Eliquis) 5 mg PO BID #60 tabs 08/22/19 07/12/22 Rx aspirin 81 mg tablet,delayed 81 mg PO QDAY #90 tabs 12/06/19 07/12/22 Rx release (Adult Low Dose Aspirin) furosemide 40 mg tablet 40 mg PO BID #180 tabs 01/11/23 Unknown Rx metoprolol tartrate 50 mg tablet 50 mg PO BID #180 tabs 03/22/23 Unknown Rx amlodipine 5 mg tablet 5 mg PO DAILY #30 tabs 07/21/23 Unknown Rx duloxetine 30 mg capsule,delayed 30 mg PO BID 07/28/23 Unknown History release spironolactone 50 mg tablet 50 mg PO DAILY 02/03/24 Unknown History (Aldactone) losartan 100 mg tablet 50 mg PO DAILY 06/20/24 Unknown History Allergy/AdvReac Type Severity Reaction Status Date / Time latex Allergy Rash Verified 06/20/24 12:56 Penicillins (cillians) Allergy Other Verified 06/20/24 12:56 Sulfa (Sulfonamide Allergy Rash Verified 06/20/24 12:56 Antibiotics) atorvastatin calcium (From AdvReac Other Verified 06/20/24 12:56 Lipitor) Opioids - Morphine Analogues AdvReac Other Verified 06/20/24 12:56 Family History Father CAD (coronary artery disease) Hypertension Mother CAD (coronary artery disease) Hypertension Breast cancer Brother CAD (coronary artery disease) Hypertension TIA (transient ischemic attack) Brother Myocardial infarction cabg Surgical History H/O coronary artery bypass surgery (12/04/14) H/O knee surgery H/O: hysterectomy Social History Smoking Status: Never smoker alcohol intake: current alcohol intake frequency: a few times a month substance use type: does not use caffeine: No ROS ROS Narrative General: Denies fever/chills, felt a little lightheaded earlier HENT: Occasionally gets some headaches, denies stuffy nose, denies sore throat EYES: Denies changes in vision Resp: Denies cough, denies shortness of breath Cardiac: Denies chest pain GI: Denies abdominal pain, denies changes in bowel, low but nauseous earlier and not great p.o. intake over the past couple of days : Denies changes in urination Extremity: Denies any new swelling MSK: Denies weakness Neuro: Denies any numbness/tingling Heme: Denies any bleeding or bruising Skin: Denies rashes Psychiatric: No complaints voiced Vital Signs Vital Signs Vital Signs: 06/20/24 12:56 06/20/24 14:00 06/20/24 14:30 Temperature 98.4 F Temperature Source Oral Pulse Rate 141 H 147 H 108 H Respiratory Rate 16 22 H 15 Blood Pressure 129/91 H 111/78 125/95 H Blood Pressure Mean 103 87 105 Blood Pressure Source Monitor Blood Pressure Position Semi-Fowlers Blood Pressure Location Left Arm Pulse Ox 99 97 95 Oxygen Delivery Method Room Air Room Air 06/20/24 14:34 06/20/24 15:00 06/20/24 15:00 Temperature 98.6 F Temperature Source Pulse Rate 91 87 74 Respiratory Rate 18 20 H Blood Pressure 125/95 H Blood Pressure Mean 105 Blood Pressure Source Blood Pressure Position Blood Pressure Location Pulse Ox 96 Oxygen Delivery Method Weight Weight: 104.8 kg Body Mass Index (BMI) 40.9 Physical Exam Narrative General: Alert, oriented, no apparent distress HEENT: Atraumatic, normocephalic Eyes: Anicteric, normal conjunctiva, extraocular movements grossly intact Neck: Supple Respiratory: Clear to auscultation bilaterally, normal respiratory effort Cardiovascular: Improving rate, a flutter GI: Soft, nontender, nondistended Extremities: No edema Musculoskeletal: Moving all extremities Neuro: No overt focal neurological deficits Skin: No rashes appreciated Psych: Cooperative Results Lab / Micro Data 06/20/24 13:05 06/20/24 13:05 Labs: Laboratory Results - last 24 hr 06/20/24 13:05: WBC 10.4, RBC 4.84, Hgb 14.4, Hct 41.7, MCV 86.2, MCH 29.8, MCHC 34.5, RDW Std Deviation 41.1, RDW Coeff of Ayesha 13.3, Plt Count 265, MPV 12.1 H, Immature Gran % (Auto) 1.100 H, Neut % (Auto) 62.4, Lymph % (Auto) 27.2, Real % (Auto) 8.1, Eos % (Auto) 0.6, Baso % (Auto) 0.6, Absolute Neuts (auto) 6.5, Absolute Lymphs (auto) 2.84, Nucleated RBC % 0, Sodium 140, Potassium 2.9 L, Chloride 101, Carbon Dioxide 28.0, Anion Gap 12, BUN 10, Creatinine 0.78, Estim Creat Clear Calc 74.70, Est GFR (MDRD) Af Amer 93, Est GFR (MDRD) Non-Af 77, BUN/Creatinine Ratio 12.8, Glucose 217 H, Calcium 9.5, Magnesium 1.5 L, Troponin I High Sens 28 Imaging Radiology Impression Chest X-Ray 06/20/24 13:38 IMPRESSION: Cardiomegaly. No acute abnormality is seen. Electronically Signed: Timmy Swanson MD at 13:49 EDT , Assessment & Plan Assessment/Plan (1) Atrial flutter: PLAN: Plan # Symptomatic a flutter with rate in 140s with history of paroxysmal atrial fibrillation -Admit to telemetry -Patient on Cardizem drip in ED and rate is improving -Will transition/increase home metoprolol -Suspect pt will improve with electrolyte replacement as well -Check TSH -Check limited echo -Continue anticoagulation -Replace electrolytes -Given patient already improving with replacement of lytes on Cardizem do not suspect that she needs cardioverted since symptoms are improving # Hypokalemia/hypomagnesemia -Patient given 10 of IV potassium in ED and 2 g of mag sulfate -Will give additional replacement and recheck -Will be slightly conservative with potassium replacement given she is also taking spironolactone and can always give additional it does not appropriately rise # History of CAD status post CABG/documented history of heart failure preserved ejection fraction chronic -Heart healthy diet -Continue aspirin, statin -Daily weights, I's and O's -Given she is on Lasix she may ultimately need routine potassium and magnesium replacement to avoid depletion moving forward pending progress #ROSENDO -Continue home NIPPV if applicable #Hypothyroidism -Continue Synthroid -Recheck TSH #GERD -Continue PPI #Morbid obesity -BMI documented as 40.9 kg/m? at time of admission -Complicates treatment, prognosis, outcomes -Recommend weight loss and lifestyle changes #DVT ppx: On full dose anticoagulation Vero Mesa MD Charges/Coding Visit Charges Inpatient E&M: 46960 Init Hosp L2
--- NOTE | 2024-06-20 15:19 | ECHOL_ITS ---
Reason For Study: Afib, Aflutter Procedure This was a limited 2D transthoracic echocardiogram. Exam performed portable in patient room. Left Ventricle Normal LV size. Left ventricular systolic function is normal. The left ventricular ejection fraction is 55 %. No regional wall motion abnormalities noted. Right Ventricle Normal RV size. Normal systolic function. Mitral Valve Bileaflet diffuse mitral valve thickening. Mild-Moderate (1-2+) eccentric mitral valve insufficiency. Tricuspid Valve Normal tricuspid valve. Mild tricuspid valve insufficiency. Pulmonary artery systolic pressure is 25 mmHg. Aortic Valve Trisinus/trileaflet aortic valve. Mild focal aortic valve calcification. Great Vessels Normal aortic root. Pericardium/Pleural No pericardial effusion. MMode/2D Measurements & Calculations LVIDd: 4.5 cm IVSd: 1.2 cm LVAd ap4: 24.3 cm2 LVIDs: 3.2 cm LVPWd: 1.1 cm LVLd ap4: 6.7 cm FS: 29.1 % EDV(MOD-sp4): 73.1 ml EDV(sp4-el): 74.9 ml LVAs ap4: 14.9 cm2 LVLs ap4: 5.6 cm ESV(MOD-sp4): 34.2 ml ESV(sp4-el): 33.7 ml EF(MOD-sp4): 53.3 % EF(sp4-el): 55.1 % SV(MOD-sp4): 38.9 ml SV(sp4-el): 41.3 ml Doppler Measurements & Calculations TR max julio: 237.1 cm/sec TR max P.5 mmHg ECHO/Echo, Limited Study Interpretation Summary Normal LV size. Left ventricular systolic function is normal. The left ventricular ejection fraction is 55 %. Mild-Moderate (1-2+) eccentric mitral valve insufficiency. Mild tricuspid valve insufficiency. Ordering Physician: Vero Mesa Referring Physician: Anibal Arellano Performed By: Kassandra Lopez RDCS, RVT
--- NOTE | 2024-06-20 15:39 | EDS_ITS ---
HPI History of Present Illness Chief Complaint: Chest Pain Informant: patient, spouse/S.O. and family Narrative Narrative: 69-year-old female history of coronary artery disease and paroxysmal atrial fibrillation presenting to the emergency room with tachycardia. Patient states that she has intermittent episodes of atrial fibrillation that are short-lived. She states however yesterday she began to notice that her heart rate was high when she took her blood pressure. She called her electronics computer mechanic office took an extra metoprolol at 1500 hrs. and again at 1700 hrs. She states it did not affect the heart rate. Today she was noting some lightheadedness when she would stand up and ambulate. She has not missed any doses of her Eliquis. No dyspnea. [facility] Medical History Chronic diastolic (congestive) heart failure Left ventricular diastolic dysfunction Atherosclerosis of coronary artery of [place] heart without angina pectoris Essential (primary) hypertension Restless leg syndrome, uncontrolled ROSENDO (obstructive sleep apnea) Hypersomnolence disorder Paroxysmal atrial fibrillation Nonrheumatic mitral valve insufficiency Non-rheumatic tricuspid valve insufficiency Dyslipidemia Tibial plateau fracture, right Trimalleolar fracture of right ankle Obesity (BMI 30-39.9) GERD (gastroesophageal reflux disease) Hypothyroidism Anxiety and depression Home Medications ?Medication ?Instructions ?Recorded ?Last Taken ?Type levothyroxine 125 mcg tablet 125 mcg PO DAILY 07/19/15 07/12/22 History pantoprazole 40 mg tablet,delayed 40 mg PO DAILY 07/19/15 07/12/22 History release simvastatin 20 mg tablet 20 mg PO QHS 07/19/15 07/12/22 History apixaban 5 mg tablet (Eliquis) 5 mg PO BID #60 tabs 08/22/19 07/12/22 Rx aspirin 81 mg tablet,delayed 81 mg PO QDAY #90 tabs 12/06/19 07/12/22 Rx release (Adult Low Dose Aspirin) furosemide 40 mg tablet 40 mg PO BID #180 tabs 01/11/23 Unknown Rx metoprolol tartrate 50 mg tablet 50 mg PO BID #180 tabs 03/22/23 Unknown Rx amlodipine 5 mg tablet 5 mg PO DAILY #30 tabs 07/21/23 Unknown Rx duloxetine 30 mg capsule,delayed 30 mg PO BID 07/28/23 Unknown History release spironolactone 50 mg tablet 50 mg PO DAILY 02/03/24 Unknown History (Aldactone) losartan 100 mg tablet 50 mg PO DAILY 06/20/24 Unknown History Allergy/AdvReac Type Severity Reaction Status Date / Time latex Allergy Rash Verified 06/20/24 12:56 Penicillins (cillians) Allergy Other Verified 06/20/24 12:56 Sulfa (Sulfonamide Allergy Rash Verified 06/20/24 12:56 Antibiotics) atorvastatin calcium (From AdvReac Other Verified 06/20/24 12:56 Lipitor) Opioids - Morphine Analogues AdvReac Other Verified 06/20/24 12:56 Family History Father CAD (coronary artery disease) Hypertension Mother CAD (coronary artery disease) Hypertension Breast cancer Brother CAD (coronary artery disease) Hypertension TIA (transient ischemic attack) Brother Myocardial infarction cabg Surgical History H/O coronary artery bypass surgery (12/04/14) H/O knee surgery H/O: hysterectomy Social History Smoking Status: Never smoker alcohol intake: current alcohol intake frequency: a few times a month substance use type: does not use caffeine: No ROS ROS ED Constitutional Constitutional ED: Denies chills, fever(s) or weight loss Eyes Eyes: Denies change in vision or diplopia ENT ENT ED: Denies ear pain, rhinorrhea or sore throat Cardiovascular Cardiovascular: Reports racing heartbeat; Denies chest pain, orthopnea or palpitations Respiratory/Chest Respiratory/Chest: Denies cough, dyspnea or orthopnea Gastrointestinal Gastrointestinal: Denies abdominal pain, diarrhea, nausea or vomiting Genitourinary Genitourinary ED: Denies dysuria, hematuria or urinary frequency Musculoskeletal Musculoskeletal: Denies arthralgias or myalgias Integumentary Denies abscess or rash Neurologic Neurologic: Denies headache(s) or weakness Psychiatric Psychiatric: Denies anxiety, depression, suicidal ideation or suicidal thoughts Endocrine Endocrinology: Denies polydipsia, polyphagia or polyuria Allergic/Immunologic Allergic/Immunologic ED: Denies mouth swelling, tongue swelling or urticaria EXAM Physical Exam Const Vital Signs: 06/20/24 12:56 06/20/24 14:00 06/20/24 14:30 Temperature 98.4 F Temperature Source Oral Pulse Rate 141 H 147 H 108 H Respiratory Rate 16 22 H 15 Blood Pressure 129/91 H 111/78 125/95 H Blood Pressure Mean 103 87 105 Blood Pressure Source Monitor Blood Pressure Position Semi-Fowlers Blood Pressure Location Left Arm Pulse Ox 99 97 95 Oxygen Delivery Method Room Air Room Air 06/20/24 14:34 06/20/24 15:00 06/20/24 15:00 Temperature 98.6 F Temperature Source Pulse Rate 91 87 74 Respiratory Rate 18 20 H Blood Pressure 125/95 H Blood Pressure Mean 105 Blood Pressure Source Blood Pressure Position Blood Pressure Location Pulse Ox 96 Oxygen Delivery Method Positive well nourished, well developed and obese General Appearance ED: well developed and NAD Nutritional Appearance: obese HEENT Reports normocephalic, head/scalp atraumatic and moist mucous membranes Eyes PERRL and EOMs intact bilaterally Neck no lymphadenopathy, supple and no JVD Resp normal respiratory effort and clear to auscultation bilaterally Cardio regular rate and regular rhythm Rate: tachycardic GI normal to inspection, nondistended, normoactive bowel sounds and non-tender Palpation: soft Back/Spine no CVA tenderness and normal ROM Extremity normal to inspection General Extremety ED: Negative for edema General Extremity: Negative for edema Neuro oriented x3 and CN's II-XII intact bilaterally Sensorium / Orientation: alert Motor Exam: strength 5/5 throughout Psych mental status grossly normal Mood & Affect: Negative for depressed or tearful Skin no rashes or lesions noted and no wounds MDM MDM MDM Narrative Medical decision making narrative: Differential diagnosis includes but not limited to cardiac dysrhythmia electrolyte abnormalities pulmonary embolism acute coronary syndrome anemia Patient's EKG shows a narrow complex tachycardia at a rate of 139. I do not see definitive P waves. Patient had no change with to Valsalva maneuvers. I gave a dose of adenosine 6 mg which slowed the patient's heart rate and allowed flutter waves to be clearly seen on the monitor. White count 10.7 hemoglobin of 14.4 and platelet count of 265. Troponin is 28. Magnesium is low at 1.5 potassium is 2.9 sodium is 140 glucose 217. My independent interpretation of the chest x- ray is cardiomegaly no acute process. I spoke with the patient's electronics computer mechanic Dr. Tavares. We are going to replace potassium and magnesium place her on a Cardizem drip and slow her down. She was given 20 mg bolus followed by a drip which is resulted in a decreased ventricular rate to the 80s. I did not feel that cardioversion would likely be successful given the electrolytes. Plan is admission. History & Record Review Discussion w/independent historian: Patient Additional record(s) reviewed:: Prior outpatient record and Prior labs Lab Data Attestation: I reviewed the patient's lab results. Labs: Laboratory Results - last 24 hr 06/20/24 13:05 WBC 10.4 RBC 4.84 Hgb 14.4 Hct 41.7 MCV 86.2 MCH 29.8 MCHC 34.5 RDW Std Deviation 41.1 RDW Coeff of Ayesha 13.3 Plt Count 265 MPV 12.1 H Immature Gran % (Auto) 1.100 H Neut % (Auto) 62.4 Lymph % (Auto) 27.2 [place] % (Auto) 8.1 Eos % (Auto) 0.6 Baso % (Auto) 0.6 Absolute Neuts (auto) 6.5 Absolute Lymphs (auto) 2.84 Nucleated RBC % 0 Sodium 140 Potassium 2.9 L Chloride 101 Carbon Dioxide 28.0 Anion Gap 12 BUN 10 Creatinine 0.78 Estim Creat Clear Calc 74.70 Est GFR (MDRD) Af Amer 93 Est GFR (MDRD) Non-Af 77 BUN/Creatinine Ratio 12.8 Glucose 217 H Calcium 9.5 Magnesium 1.5 L Troponin I High Sens 28 Radiography Diagnostic Testing: Clinical Impression(s) from Imaging Studies Chest X-Ray 06/20/24 13:38 IMPRESSION: Cardiomegaly. No acute abnormality is seen. Electronically Signed: Timmy Swanson MD at 13:49 EDT , Management Discussion w/another healthcare provider: Hospitalist (Dr Mesa) and Manager Investigations (Dr Tavares) Discharge Plan Disposition Disposition: Acute Care Hospital [facility] Discharge Date/Time: 06/20/24 15:23
--- NOTE | 2024-06-20 16:42 | PCM.CONS.C ---
Assessment & Plan Assessment/Plan (1) Atrial flutter with rapid ventricular response: PLAN: She is in atrial flutter with a rapid ventricular response rate. Unfortunately her potassium level was noted to be low as well as a magnesium level. These are being replaced. As she has not missed any doses of her Eliquis she may be a candidate for early cardioversion. Have discussed the above with her she understands and agrees to proceed we will recheck her electrolytes in the a.m. and if they are acceptable we may proceed with this. (2) H/O coronary artery bypass surgery: PLAN: She is status post coronary bypass surgery she does not have any recent anginal episodes the plan to be to continue the current medical therapy. (3) Essential (primary) hypertension: PLAN: Her blood pressure appears to be under fair control. We may increase the amlodipine to 10 mg a day in addition to the losartan and the metoprolol. Limited echocardiogram performed demonstrated preserved left ventricular systolic function. Thank you for allowing me to participate in the care of your patient. Please don't hesitate to call if any issues arise. HPI Consult Data Date of Consult: 06/20/24 HPI Narrative HPI Narrative: DAVIN OQUENDO, is a 69 F who presents is the emergency room with complaints of palpitations. She usually is bradycardic and checked her blood pressure at home yesterday and was noted to be elevated and was having palpitations and tachycardic. Her primary physician asked her to take an extra dose of her medication. She did that but this morning she still noticed that she was having palpitations so presented to the emergency room and was noted to be in a narrow complex tachycardia. She was given 6 mg of adenosine which revealed flutter waves cardiology was called and intravenous Cardizem was started. She has not missed any doses of Eliquis. At this particular time she is on a diltiazem drip with a rate in the low 100s. She does have a history of coronary artery disease status post coronary bypass surgery in 2014 with a left internal mammary artery to the left anterior descending artery, saphenous vein graft to the obtuse marginal branch is 1 and 2 and saphenous vein graft to the posterior descending artery. She also has a history of hypertension and hyperlipidemia. She had been doing fairly well from the cardiac standpoint apart from occasional elevations in her blood pressure. She does have occasional SOB with exertion-this is nothing new or worsening. She denies Orthopnea, and PND. She does not have bleeding issues; no blood in urine, stool or nosebleeds. She denies any decrease in energy level, myalgias, or claudication. She does have occasional bilateral ankle edema. She denies sudden weight gain. She does acknowledge having dizziness after taking medications in the morning. She denies lightheadedness, syncopal or near syncopal episodes, and headaches. [facility] Medical History Chronic diastolic (congestive) heart failure Left ventricular diastolic dysfunction Atherosclerosis of coronary artery of [place] heart without angina pectoris Essential (primary) hypertension Restless leg syndrome, uncontrolled ROSENDO (obstructive sleep apnea) Hypersomnolence disorder Paroxysmal atrial fibrillation Nonrheumatic mitral valve insufficiency Non-rheumatic tricuspid valve insufficiency Dyslipidemia Tibial plateau fracture, right Trimalleolar fracture of right ankle Obesity (BMI 30-39.9) GERD (gastroesophageal reflux disease) Hypothyroidism Anxiety and depression Home Medications ?Medication ?Instructions ?Recorded ?Last Taken ?Type levothyroxine 125 mcg tablet 125 mcg PO DAILY thyroid 07/19/15 06/20/24 History pantoprazole 40 mg tablet,delayed 40 mg PO DAILY stomach 07/19/15 06/20/24 History release simvastatin 20 mg tablet 20 mg PO QHS cholesterol 07/19/15 06/19/24 History apixaban 5 mg tablet (Eliquis) 5 mg PO BID #60 tabs 08/22/19 06/20/24 Rx aspirin 81 mg tablet,delayed 81 mg PO QDAY #90 tabs 12/06/19 06/19/24 Rx release (Adult Low Dose Aspirin) furosemide 40 mg tablet 40 mg PO BID #180 tabs 01/11/23 06/20/24 Rx metoprolol tartrate 50 mg tablet 50 mg PO BID #180 tabs 03/22/23 06/20/24 Rx amlodipine 5 mg tablet 5 mg PO DAILY blood pressure #30 07/21/23 06/19/24 Rx tabs duloxetine 30 mg capsule,delayed 30 mg PO BID mood 07/28/23 06/20/24 History release spironolactone 50 mg tablet 50 mg PO DAILY water pill 02/03/24 06/20/24 History (Aldactone) losartan 100 mg tablet 50 mg PO DAILY blood pressure 06/20/24 06/19/24 History Allergy/AdvReac Type Severity Reaction Status Date / Time latex Allergy Rash Verified 06/20/24 12:56 Penicillins (cillians) Allergy Other Verified 06/20/24 12:56 Sulfa (Sulfonamide Allergy Rash Verified 06/20/24 12:56 Antibiotics) atorvastatin calcium (From AdvReac Other Verified 06/20/24 12:56 Lipitor) Opioids - Morphine Analogues AdvReac Other Verified 06/20/24 12:56 Family History Father CAD (coronary artery disease) Hypertension Mother CAD (coronary artery disease) Hypertension Breast cancer Brother CAD (coronary artery disease) Hypertension TIA (transient ischemic attack) Brother Myocardial infarction cabg Surgical History H/O coronary artery bypass surgery (12/04/14) H/O knee surgery H/O: hysterectomy Social History Smoking Status: Never smoker alcohol intake: current alcohol intake frequency: a few times a month substance use type: does not use caffeine: No ROS Constitutional Constitutional: Denies fever(s) or weight loss Eyes Eyes: Reports systems reviewed and no addt'l complaints, except as documented ENT HEENT: Reports systems reviewed and no addt'l complaints, except as documented Cardiovascular Cardiovascular: Reports palpitations; Denies chest pain at rest, chest pain with activity, dyspnea at rest, dyspnea on exertion, edema or paroxysmal nocturnal dyspnea Respiratory/Chest Respiratory/Chest: Denies dyspnea on exertion, productive cough, shortness of breath at rest or shortness of breath with exertion Gastrointestinal Gastrointestinal: Denies change in bowel habits, nausea, vomiting or weight changes Genitourinary Genitourinary: Denies difficulty urinating Musculoskeletal Musculoskeletal: Denies joint stiffness or muscle weakness Integumentary Integumentary: Denies lesions Neurologic Neurologic: Denies dizziness or syncope Psychiatric Psychiatric: Denies anxiety Endocrine Endocrinology: Denies excessive sweating or fatigue Hematologic/Lymphatic Hematologic/Lymphatic: Denies anemia Allergic/Immunologic Allergic/Immunologic: Denies seasonal rhinorrhea Physical Exam Const alert, oriented x3 and no apparent distress General Appearance: cooperative HEENT hearing grossly normal bilaterally Head and Scalp: atraumatic Eyes EOMs intact bilaterally Neck General: normal visual inspection Chest inspection of chest normal and palpation of chest normal Resp normal respiratory effort Auscultation: clear to auscultation bilaterally Cardio S1 normal heart sound and S2 normal heart sound Jugular Venous Distention: JVD Rhythm: abnormal rhythm irregularly irregular GI normal to inspection, nondistended, normoactive bowel sounds Extremity normal capillary refill and no pedal edema Peripheral Pulses: Yes pulses 2+ throughout and femoral pulses present Skin no rashes or lesions noted Neuro oriented x3 and CN's II-XII intact bilaterally Psych Appearance: grossly normal and appropriate Risk Stratification Risk Stratification Applicable: No Objective Data Vital Signs: Vital Signs Temp Pulse Resp BP Pulse Ox O2 Del Method 98.6 F 74 20 H 125/95 H 96 Room Air 06/20/24 14:34 06/20/24 15:00 06/20/24 15:00 06/20/24 14:34 06/20/24 14:34 06/20/24 16:00 Oxygen Delivery Method Room Air Weight: 223 lb 6.4 oz Body Mass Index (BMI) 39.5 Intake & Output: Intake and Output for Last 24 Hours 06/18/24 06/19/24 06/20/24 23:59 23:59 23:59 Intake Total 112.03 / 112.03 Balance 112.03 / 112.03 Lab / Micro Data 06/20/24 13:05 06/20/24 13:05 Labs: Laboratory Results - last 24 hr 06/20/24 13:05: WBC 10.4, RBC 4.84, Hgb 14.4, Hct 41.7, MCV 86.2, MCH 29.8, MCHC 34.5, RDW Std Deviation 41.1, RDW Coeff of Ayesha 13.3, Plt Count 265, MPV 12.1 H, Immature Gran % (Auto) 1.100 H, Neut % (Auto) 62.4, Lymph % (Auto) 27.2, [place] % (Auto) 8.1, Eos % (Auto) 0.6, Baso % (Auto) 0.6, Absolute Neuts (auto) 6.5, Absolute Lymphs (auto) 2.84, Nucleated RBC % 0, Sodium 140, Potassium 2.9 L, Chloride 101, Carbon Dioxide 28.0, Anion Gap 12, BUN 10, Creatinine 0.78, Estim Creat Clear Calc 74.70, Est GFR (MDRD) Af Amer 93, Est GFR (MDRD) Non-Af 77, BUN/Creatinine Ratio 12.8, Glucose 217 H, Calcium 9.5, Magnesium 1.5 L, Troponin I High Sens 28 Cardiology Labs/Tests 06/20/24 13:05: WBC 10.4, RBC 4.84, Hgb 14.4, Hct 41.7, MCV 86.2, MCH 29.8, MCHC 34.5, Plt Count 265, MPV 12.1 H, Immature Gran % (Auto) 1.100 H, Neut % (Auto) 62.4, Lymph % (Auto) 27.2, [place] % (Auto) 8.1, Eos % (Auto) 0.6, Baso % (Auto) 0.6, Absolute Neuts (auto) 6.5, Nucleated RBC % 0, Sodium 140, Potassium 2.9 L, Chloride 101, Carbon Dioxide 28.0, Anion Gap 12, BUN 10, Creatinine 0.78, Est GFR (MDRD) Af Amer 93, Est GFR (MDRD) Non-Af 77, BUN/Creatinine Ratio 12.8, Glucose 217 H, Calcium 9.5, Magnesium 1.5 L Rhythm: EKG: ECHO: Stress Test: Cardiac Cath: PCI: CT Surgery: Holter monitor: EPS: PPM: CXR: Chest CT Scan: Radiography Diagnostic Testing: Radiology Impression Chest X-Ray 06/20/24 13:38 IMPRESSION: Cardiomegaly. No acute abnormality is seen. Electronically Signed: Timmy Swanson MD at 13:49 EDT ,
[2024-06-20] MEDS: Furosemide 40 MG Tablet PO (16:51)
[2024-06-20] MEDS: Potassium Chloride Oral Tablet 20 MEQ PO (16:51)
--- NOTE | 2024-06-20 17:18 | EKG12_ITS ---
Test Reason : ADMIT EKG Blood Pressure : / mmHG Vent. Rate : 072 BPM Atrial Rate : 072 BPM P-R Int : 150 ms QRS Dur : 096 ms QT Int : 406 ms P-R-T Axes : 053 014 036 degrees QTc Int : 444 ms Normal sinus rhythm Minimal voltage criteria for LVH, may be normal variant ( R in aVL ) Inferior infarct , age undetermined Abnormal ECG Confirmed by FIORDALIZA RAO, ARSALAN ([id number]), writer editor KATHIE RUTLEDGE ([id number]) on 06/21/2024 2:07:24 PM Referred By: SARITA Confirmed By:ARSALAN MANCERA MD
[2024-06-20 19:29] LABS: Anion Gap 12 (5-15); BUN 9 mg/dL (7-18); BUN/Creat Ratio 9.8 RATIO (10-20); Calcium,Total 8.9 mg/dL (8.5-10.1); Chloride 102 mmol/L (98-107); Creatinine, Serum 0.92 mg/dL (0.55-1.02); EST Glomerular Filtration Rate 64 mL/min (>60); Est Glom Filt Rate - Afr Amer 78 mL/min (>60); Estimated Creatinine Clearance 63.73 ml/min; Glucose 254 mg/dL (74-106); Magnesium 2.8 mg/dL (1.6-2.6); Potassium 2.9 mmol/L (3.5-5.1); Sodium Level 139 mmol/L (136-145)
[2024-06-20] MEDS: DULoxetine Hcl 30 MG Capsule PO (20:53)
[2024-06-20] MEDS: Simvastatin 20 MG Tablet 10 MG PO (20:54)
[2024-06-20] MEDS: Metoprolol Tartrate 25 MG Tablet 75 MG PO (20:54)
[2024-06-20] MEDS: APIXABAN 5 MG TABLET PO (20:55)
[2024-06-20] MEDS: Aspirin E.C. 81 MG Tablet PO (20:59)
[2024-06-20] MEDS: Nystatin Powder 15gm Bottle 1 APPLIC TOPICAL (21:26)
--- NOTE | 2024-06-21 01:29 | CPS ---
pt has own cpap ready for use and close to pt.
[2024-06-21 04:14] VITALS: BMI 40.1
[2024-06-21 05:01] VITALS: BP 143/53; PULSE 81; RESP 18; TEMP 36.6; O2SAT 98
[2024-06-21] MEDS: Levothyroxine 125 MCG Tablet PO (05:02)
[2024-06-21 07:16] LABS: Absolute Neutrophil Count 4.7 X10^3/uL (2.0-7.7); Basophil# 0.05 X10^3/uL; Basophil% 0.6 % (0-1); Eosinophil# 0.09 X10^3/uL; Eosinophils% 1.1 % (0-5); Hematocrit 34.8 % (37-47); Hemoglobin 11.7 g/dL (12.0-15.0); Lymphocyte % 31.4 % (19-41); Mean Corp Hgb Conc 33.6 g/dL (32-36); Mean Corpuscular Hgb 29.3 pg (27.0-32.0); Mean Platelet Vol. 11.9 fl (6.2-12.0); Monocyte# 0.82 X10^3/uL; Monocyte% 9.9 % (0-10); NRBC Flagged by Analyzer 0 % (0-5); Neutrophil # 4.66 X10^3/uL (2.7-7.7); Neutrophil % 56.2 % (47-70); Platelet Count 199 K/mm3 (150-450); RBC Distribution Width CV 13.2 % (11.6-14.6); RBC Distribution Width SD 41.6 fl (35.1-43.9); White Blood Count 8.3 K/mm3 (4.4-11.0)
[2024-06-21 07:50] VITALS: BP 107/48; PULSE 75; RESP 18; TEMP 36.6; O2SAT 97
[2024-06-21 07:56] LABS: Anion Gap 9 (5-15); BUN 9 mg/dL (7-18); BUN/Creat Ratio 13.8 RATIO (10-20); Chloride 102 mmol/L (98-107); Cholesterol 141 mg/dL (200); Creatinine, Serum 0.65 mg/dL (0.55-1.02); EST Glomerular Filtration Rate 95 mL/min (>60); Est Glom Filt Rate - Afr Amer 115 mL/min (>60); Estimated Creatinine Clearance 73.92 ml/min; Glucose 184 mg/dL (74-106); High Density Lipoprotein 31 mg/dL; Magnesium 2.3 mg/dL (1.6-2.6); Phosphorus 3.4 mg/dL (2.5-4.9); Potassium 2.7 mmol/L (3.5-5.1); Sodium Level 137 mmol/L (136-145); Triglycerides 277 mg/dL; Very Low Density Lipoprotein 55 mg/dL (5-40)
[2024-06-21] MEDS: Potassium Chloride Oral Tablet 20 MEQ 60 MEQ PO (08:30)
[2024-06-21 08:31] VITALS: PULSE 75
[2024-06-21] MEDS: Metoprolol Tartrate 25 MG Tablet 75 MG PO (08:31)
[2024-06-21] MEDS: Furosemide 40 MG Tablet PO (08:31)
[2024-06-21] MEDS: Pantoprazole Sodium 40 MG Tablet PO (08:31)
[2024-06-21] MEDS: Spironolactone 50 MG Tablet PO (08:32)
[2024-06-21] MEDS: DULoxetine Hcl 30 MG Capsule PO (08:32)
[2024-06-21] MEDS: APIXABAN 5 MG TABLET PO (08:32)
[2024-06-21] MEDS: Potassium Chloride 10mEq/100mL 10 MEQ/100 ML IV.SOLN. 100 MEQ IV BOLUS ×4 (08:32→12:56)
[2024-06-21] MEDS: Nystatin Powder 15gm Bottle 1 APPLIC TOPICAL (08:34)
[2024-06-21] MEDS: Senna/Docusate Sodium 1 Tablet 2 TABLET PO (11:21)
[2024-06-21 14:26] VITALS: BP 106/92; PULSE 71; RESP 18; TEMP 36.6; O2SAT 99
--- NOTE | 2024-06-21 14:27 | DS.PCM_ITS ---
Providers Date of Admission: 06/20/24 Date of Discharge: 06/21/24 Primary Care Physician: Dr. Anibal Arellano MD Reason For Visit: SYMPTOMATIC AFLUTTER Diagnosis Discharge Diagnosis (1) Atrial flutter with rapid ventricular response: Status: Acute Code(s): I48.92 - Unspecified atrial flutter (2) H/O coronary artery bypass surgery: Status: Resolved Code(s): Z95.1 - Presence of aortocoronary bypass graft (3) Essential (primary) hypertension: Status: Chronic Code(s): I10 - Essential (primary) hypertension Medications at Discharge Home Medications levothyroxine 125 mcg tablet 125 mcg PO DAILY thyroid 07/19/15 pantoprazole 40 mg tablet,delayed release 40 mg PO DAILY stomach 07/19/15 simvastatin 20 mg tablet 20 mg PO QHS cholesterol 07/19/15 apixaban 5 mg tablet (Eliquis) 5 mg PO BID blood thinner #60 tabs 08/22/19 aspirin 81 mg tablet,delayed release (Adult Low Dose Aspirin) [facility] 12/06/19 furosemide 40 mg tablet 40 mg PO BID diuretic #180 tabs 01/11/23 amlodipine 5 mg tablet 5 mg PO DAILY blood pressure #30 tabs 07/21/23 duloxetine 30 mg capsule,delayed release 30 mg PO BID mood 07/28/23 spironolactone 50 mg tablet (Aldactone) 50 mg PO DAILY water pill 02/03/24 losartan 100 mg tablet 50 mg PO DAILY blood pressure 06/20/24 metoprolol tartrate 25 mg tablet 75 mg (3 x 25 mg) PO BID #180 tabs 06/21/24 Hospital Course Operations None Procedures 2-D Echocardiogram, EKG and - (CXR) Summary of Care Provided Minutes Spent on Discharge: 30 Hospital Course: Mrs. Gongora is a 69-year-old white female who presented to the emergency department at [facility] on 06/20/2020 for due to lightheadedness and tachycardia. Patient has known history of atrial fibrillation/flutter with RVR that is paroxysmal in nature. She reported on presentation that she usually is sinus bradycardia day prior to admission she noted that her heart rates at home were in the 130s to 140s. She called her public health sanitarian office and was told to take the medication and attempt to slow her heart rate down however this was not successful so she presented to the emergency department. Upon presentation she was noted to be in atrial flutter. She was given adenosine which did slow her down enough to reveal flutter waves. Cardiology was contacted by the emergency department physician and recommended Cardizem and to replace her electrolyte abnormalities which were noted on her admitting lab to include hypokalemia that was severe and moderate hypomagnesemia. Other than her tachycardia on presentation her vital signs were overtly unremarkable. CBC was unremarkable. Chemistry panel revealed marked hypokalemia with potassium of 2.9 and even after supplementation this morning was 2.7. Her magnesium level was also low at 1.5 on presentation. She was given oral potassium and IV magnesium on admission. Repeat potassium this morning was 2.7 so she was given another 60 mill equivalents p.o. and 40 IV with repeat labs showing potassium of 4.0. She is on diuretics at baseline but also on losartan and Aldactone. The exact etiology of her electrolyte abnormalities is unclear. I hesitate to schedule electrolytes at this point without longitudinal data to support this so I have asked her to follow-up with her primary care physician. I have requested that she ask her PCP for and repeat BMP and magnesium level to be performed in the next 5 to 7 days to recheck her electrolytes and assess her for need of long-term supplementation. No significant medication changes other than holding her amlodipine for now and increase of her metoprolol to 75 mg from 50 mg daily were made. Cardiology did evaluate the patient during her hospital stay. An echocardiogram was ordered and performed which demonstrated normal LV function with an EF of 55%, mild to moderate eccentric mitral valve insufficiency and mild tricuspid valve insufficiency. Prescription for the change in her metoprolol was sent to local pharmacy and I have asked her to hold her amlodipine until she follows up with cardiology to reassess her blood pressure with the alteration in her metoprolol. She was discharged home in stable condition on 06/21/2024. She has been asked to follow-up with her primary care physician within the next 1 to 2 weeks and with her public health sanitarian in 4 weeks. Discharge diagnoses: Atrial flutter with RVR-paroxysmal and resolved Severe hypokalemia Hypomagnesemia DM-2 Chronic diastolic heart failure Essential hypertension ROSENDO Restless leg syndrome Nonrheumatic mitral valve disease Nonrheumatic tricuspid valve disease Hyperlipidemia GERD Hypothyroidism Anxiety/depression Morbid obesity Physical Exam Const alert, oriented x3, no apparent distress, no limitations and well nourished; Negative for average body habitus or healthy appearing Constitutional Narrative: Obese, older, white female, sitting up in bed watching television, appears comfortable, nontoxic General Appearance: cooperative, comfortable, well kempt and well developed Exam Limitations: no limitations Nutritional Appearance: obese HEENT normocephalic, head/scalp atraumatic, hearing grossly normal bilaterally and moist oral mucous membranes HEENT Narrative: Mallampati 3-4, no thrush Resp normal respiratory effort, no retractions, no use of accessory muscles and clear to auscultation bilaterally Auscultation: Negative for rales, rhonchi or wheezes Cardio regular rate, regular rhythm, S1 normal heart sound, S2 normal heart sound, no murmurs, no rub, no gallops and no clicks GI normal to inspection, nondistended, normoactive bowel sounds, soft to palpation and non-tender Extremity no clubbing, cyanosis or edema Extremity Narrative: Radial and pedal pulses are 2+ Neuro oriented x3, moves all extremities and no focal motor deficits Speech: speech normal Psych affect normal Psych Narrative: Very pleasant, eye contact is good, interacts appropriately Weight / BMI Weight Weight: 102.9 kg Body Mass Index (BMI) 40.1 ABG / Lab / Microbiology Data 06/21/24 06:54 06/21/24 13:10 Laboratory: Laboratory Results - last 24 hr 06/20/24 18:55: Sodium 139, Potassium 2.9 L, Chloride 102, Carbon Dioxide 25.0, Anion Gap 12, BUN 9, Creatinine 0.92, Estim Creat Clear Calc 63.73, Est GFR (MDRD) Af Amer 78, Est GFR (MDRD) Non-Af 64, BUN/Creatinine Ratio 9.8 L, Glucose 254 H, Calcium 8.9, Magnesium 2.8 H 06/21/24 06:54: WBC 8.3, RBC 4.00 L, Hgb 11.7 L, Hct 34.8 L, MCV 87.0, MCH 29.3, MCHC 33.6, RDW Std Deviation 41.6, RDW Coeff of Ayesha 13.2, Plt Count 199, MPV 11.9, Immature Gran % (Auto) 0.800, Neut % (Auto) 56.2, Lymph % (Auto) 31.4, [place] % (Auto) 9.9, Eos % (Auto) 1.1, Baso % (Auto) 0.6, Absolute Neuts (auto) 4.7, Absolute Lymphs (auto) 2.60, Nucleated RBC % 0, Sodium 137, Potassium 2.7 L*, Chloride 102, Carbon Dioxide 26.0, Anion Gap 9, BUN 9, Creatinine 0.65, Estim Creat Clear Calc 73.92, Est GFR (MDRD) Af Amer 115, Est GFR (MDRD) Non-Af 95, BUN/Creatinine Ratio 13.8, Glucose 184 H, Calcium 9.0, Phosphorus 3.4, Magnesium 2.3, Triglycerides 277 H, Cholesterol 141, LDL Cholesterol 55, VLDL Cholesterol 55 H, HDL Cholesterol 31 L, TSH 1.440 06/21/24 13:10: Potassium 4.0 Radiography Diagnostic Testing: Radiology Impression Echocardiogram 06/20/24 15:19 Interpretation Summary Normal LV size. Left ventricular systolic function is normal. The left ventricular ejection fraction is 55 %. Mild-Moderate (1-2+) eccentric mitral valve insufficiency. Mild tricuspid valve insufficiency. Ordering Physician: [place] Referring Physician: Anibal Arellano Performed By: Kassandra Lopez, MARTINA, RVT D/C Instructions Discharge Diet: Low fat / Low cholesterol Discharge Activity: Return to Normal Activity Meaningful Use Info Meaningful Use Meaningful Use Diagnoses (Choose all that apply): None applicable Ischemic Stroke Statin Dosing Therapy Reference: STATIN DOSE THERAPY REFERENCE: * Patients > 75 years receive moderate or high dose statin therapy. * Patients 75 years or YOUNGER should receive HIGH intensity statin dose unless contraindicated. You will be required to document reason for non-treatment if statin daily dose does not meet guidelines. HIGH DOSE STATIN THERAPY DAILY Atorvastatin > than or = to 40 mg Rosuvastatin > than or = to 20 mg Amlodipine + Atorvastatin > than or = to 2.5/40 mg Ezetimibe + Simvastatin 10/80 mg Simvastatin 80mg Discharge Plan Admission Admit Date/Time: 06/20/24 15:07 Primary Reason for Your Visit: palpitations Attending Provider: Tanisha Walls Primary Care Provider: Anibal Arellano Consulting Providers: [place] Instructions Additional Instructions / Restrictions: 1. Please call your primary care physician and asked that a basic metabolic profile and magnesium level be drawn in the next 5 to 7 days. 2. If you develop further fast heart rates or palpitations please call cardiology and follow-up with cardiology as noted below in 4 weeks Discharge Orders/Prescriptions Prescriptions: New metoprolol tartrate 25 mg Tablet 75 mg PO BID Qty: 180 0RF Continued duloxetine 30 mg capsule,delayed release(DR/EC) 30 mg PO BID Patient Comments: Take 1 capsule (30 mg) by mouth 2 times a day. Do not crush or chew. spironolactone [Aldactone] 50 mg tablet 50 mg PO DAILY pantoprazole 40 MG tablet 40 mg PO DAILY Patient Comments: ACID REFLUX simvastatin 20 MG tablet 20 mg PO QHS Patient Comments: CHOLESTEROL levothyroxine 125 MCG tablet 125 mcg PO DAILY Patient Comments: THYROID losartan 100 mg tablet 50 mg PO DAILY Eliquis 5 mg tablet 5 mg PO BID Qty: 60 11RF aspirin [Adult Low Dose Aspirin] 81 mg tablet,delayed release (DR/EC) 81 mg PO QDAY Qty: 90 3RF furosemide 40 mg tablet 40 mg PO BID Qty: 180 3RF Held amlodipine 5 mg tablet 5 mg PO DAILY Qty: 30 11RF Hold Instructions: until f/u with cardiology Discontinued metoprolol tartrate 50 mg tablet 50 mg PO BID Qty: 180 3RF Referrals / Follow Up: Kilo Tavares MD [Med Staff - Active Staff] - See Referral Note (Please call tomorrow to set up an outpatient appointment to be seen in 4 weeks) Anibal Arellano MD [Primary Care Provider] - Within 2 Weeks Disposition Disposition (needs filled in before D/C Order can be placed): Home, Self Care Charges/Coding Visit Charges Inpatient E&M: 91412 Disch Hosp
--- NOTE | 2024-06-21 14:30 | CASEMGMT ---
RN CM Face to Face with patient for initial transition planning/care coordination assessment. RN CM introduced self and role at [facility]. Patient lying in bed, alert and oriented. Patient willing to participate in assessment and is able to answer all questions appropriately. Care providers, pharmacy, and demographics verified. Strata: 2 PCP: Eileen Specialists: Anusha, assistant controller; Adair Nguyen airplane flight attendant supervisor [facility] Benef[facility]: yes Living Will/HPOA: none LNOK: Living Arrangements: Patient lives with in a 2 story home with bed and bath on first floor. Transportation: self, DME/HHC: Patient states she has shower chair, raised toilet, cane, walker, grab bars, cpap. No previous HHC or SNF Patient wishes to discharge home, denies need for home health at this time. Patient states he has no further needs or concerns at this time. CM to follow for discharge planning needs that may arise. Disposition Plan: Patient to discharge home with family support and follow-up plans in place. Lin PARKINSON, RN, CM
--- NOTE | 2024-06-21 15:14 | PHA.DC_ITS ---
Pharmacy [facility] Reconciliation Pharmacy Service has performed discharge medication reconciliation for this patient. The patient's discharge medication list was reviewed for discrepancies and discrepancies were resolved. Medications at Discharge Home Medications levothyroxine 125 mcg tablet 125 mcg PO DAILY thyroid 07/19/15 pantoprazole 40 mg tablet,delayed release 40 mg PO DAILY stomach 07/19/15 simvastatin 20 mg tablet 20 mg PO QHS cholesterol 07/19/15 apixaban 5 mg tablet (Eliquis) 5 mg PO BID blood thinner #60 tabs 08/22/19 aspirin 81 mg tablet,delayed release (Adult Low Dose Aspirin) [facility] tabs 12/06/19 furosemide 40 mg tablet 40 mg PO BID diuretic #180 tabs 01/11/23 metoprolol tartrate 50 mg tablet 50 mg PO BID blood pressure #180 tabs 03/22/23 amlodipine 5 mg tablet 5 mg PO DAILY blood pressure #30 tabs 07/21/23 duloxetine 30 mg capsule,delayed release 30 mg PO BID mood 07/28/23 spironolactone 50 mg tablet (Aldactone) 50 mg PO DAILY water pill 02/03/24 losartan 100 mg tablet 50 mg PO DAILY blood pressure 06/20/24
== END 2024-06-21 16:02 | disposition home or self-care (01) | DRG 309 ==
LOC: ED 13:57 → PCU 15:23
PROVIDERS: Admitting Provider Internal Medicine; Emergency Provider Emergency Medicine; PCP Family Medicine; Visit Provider Internal Medicine
DX: I48.92 Unspecified atrial flutter (principal); I50.32 Chronic diastolic (congestive) heart failure; Z68.41 Body mass index [BMI] 40.0-44.9, adult; I36.9 Nonrheumatic tricuspid valve disorder, unspecified; I11.0 Hypertensive heart disease with heart failure; E11.9 Type 2 diabetes mellitus without complications; E03.9 Hypothyroidism, unspecified; G25.81 Restless legs syndrome; F32.A Depression, unspecified; E66.01 Morbid (severe) obesity due to excess calories; I48.0 Paroxysmal atrial fibrillation; I25.10 Atherosclerotic heart disease of native coronary artery without angina pectoris; K21.9 Gastro-esophageal reflux disease without esophagitis; E87.6 Hypokalemia; E78.5 Hyperlipidemia, unspecified; G47.33 Obstructive sleep apnea (adult) (pediatric); F41.9 Anxiety disorder, unspecified; E83.42 Hypomagnesemia; I34.9 Nonrheumatic mitral valve disorder, unspecified; Z79.01 Long term (current) use of anticoagulants; Z79.82 Long term (current) use of aspirin; Z79.890 Hormone replacement therapy; Z79.899 Other long term (current) drug therapy; Z95.1 Presence of aortocoronary bypass graft
CPT/HCPCS: 36415; 71045; 80048; 80061; 83735; 84100; 84132; 84443; 84484; 85025; 93005; 93308; 99284; J7030; Q9957; A4216; J0153